=== PATIENT | male | born 1930 | race Caucasian/White ===

== ENCOUNTER 2016-08-25 12:22 | Observation (INO) | payer MEDICARE, OTHER ==
[2016-08-22 12:11] LABS: BASOPHILS 0.3 %; BASOPHILS ABSOLUTE 0.02 10/3/uL (0.0-0.16); EOSINOPHILS 5.8 %; EOSINOPHILS ABSOLUTE 0.35 10/3/uL (0.0-0.53); HEMATOCRIT 43.2 % (40.0-51.0); HEMOGLOBIN 14.8 g/dL (13.6-17.8); IMMATURE GRANULOCYTES 0.3 %; IMMATURE GRANULOCYTES ABSOLUTE 0.02 10/3/uL (0.0-0.11); LYMPHOCYTES ABSOLUTE 1.44 10/3/uL (0.67-4.30); MANUAL DIFF NO %; MEAN CORPUS HGB CONC 34.3 g/dL (32.0-36.0); MEAN CORPUSCULAR HEMOGLOB 33.1 pg (26.0-34.0); MEAN CORPUSCULAR VOLUME 96.6 fL (80-100); MEAN PLATELET VOLUME 9.9 fL (9.2-13.0); MONOCYTES ABSOLUTE 0.48 10/3/uL (0.21-1.20); NEUTROPHILS 61.6 %; PLATELET COUNT 174 10/3/uL (150-400); RBC DISTRIBUTION WIDTH 13.3 % (12.0-16.0); RED CELL COUNT 4.47 10/6/uL (4.7-6.1)
[2016-08-22 12:28] LABS: BUN (BLOOD UREA NITROGEN) 31 MG/DL (6-23); CALCIUM, SERUM 9.1 MG/DL (8.5-10.4); CHLORIDE, SERUM 105 MMOL/L (96-112); CO2 (CARBON DIOXIDE) 27 MMOL/L (24-34); CREATININE 1.28 MG/DL (0.70-1.30); GFR AFRICAN AMERICAN 59 ML/MIN (>=60); GFR NON AFRICAN AMERICAN 51 ML/MIN (>=60); GLUCOSE, SERUM 87 MG/DL (60-99); POTASSIUM, SERUM 4.7 MMOL/L (3.5-5.3); SODIUM, SERUM 142 MMOL/L (135-148)
--- NOTE | ~2016-08-25 | HP ---
History And Physical [address] [facility] 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 NECK: Supple. LUNGS: Clear. HEART: He has a regular rate and rhythm without murmur or gallop. ABDOMEN: Soft and nontender. Bowel sounds present and active. Liver and spleen are not enlarged. GENITOURINARY: External genitalia are normal. RECTAL: Exam reveals a 1+ smooth prostate. EXTREMITIES: Without edema. NEUROLOGIC: No abnormalities. MUSCULOSKELETAL: No abnormalities. IMPRESSION: Impression is that of bladder cancer with urethral stricture. PLAN: The plan is to do a cysto dilatation and bladder biopsies. OB/MODL Joe Moyer III, M.D. / [id number] CC: Reza Sharma III, M.D.
--- NOTE | ~2016-08-25 | OP ---
Record Of Operation [facility] [address] [place]. [address] NAME: MARGUERITE ALEX : 30 STATUS : REG [facility] PAT#: [id number] AGE: 85 ADM/REG DATE : 08/25/16 MR#: [id number] REPORT SERV DATE: 08/25/16 DICTATED BY: JOE MOYER III DATE: 08/25/16 REPORT STATUS : Draft TRANSCRIBED BY: MODL DATE: 08/25/16 DATE OF PROCEDURE: 08/25/2016 PROCEDURE: Cystoscopy, dilatation of urethral stricture, bilateral retrogrades, multiple bladder biopsies and resection of multiple small tumors and fulguration. 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 ANESTHESIA: General. DESCRIPTION OF PROCEDURE: Following induction of adequate general anesthesia, the patient was placed in the dorsal lithotomy position, prepped and draped in a sterile fashion. The urethra was entered and the bulbous urethra was approached. I could not see a clear path to the prostatic apex. A rigid ureteroscope was used and the track was identified. A wire was placed and confirmed with fluoro. The scope was passed into the bladder fairly easily. I then backed the ureteroscope out and used Guerrier sounds to dilate up to approximately 28- Djiboutian. The 22-Djiboutian sheath was passed through the prostate which was minimally obstructing. The base of the bladder either the trigone and somewhat the posterior wall and lateral lala up to about the midway from the posterior to the anterior surface of the bladder were reddened at the bladder near the bladder, particularly on the right side where his previous tumors were. There were some very small papillary clusters of tumor. There was also tumor at approximately 9 to 10 o'clock just inside the bladder neck on the right side. No solid tumor was noted. His bladder capacity was quite low and required constant emptying. Bilateral retrogrades were done and orifices were identified. There were no filling defects or gross distortion of the calices. Next cold cup forceps were taken from the base of the bladder and the mucosa peeled off very easily, suggestive of carcinoma in situ. Some cold cup biopsies were done and then after another passage with a Guerrier sound, a 24-sheath was advanced into the bladder. Some deeper shavings were done of the trigone and the base of the bladder down into the muscle. These were all sent as bladder biopsies. This included the previously mentioned small papillary lesions. Next the rollerball was placed and the tumor on the 9 to 10 o'clock position which I had actually attempted to remove with the loop but could not due to the fixation of the prostate, it was fulgurated with a rollerball electrode. All erythematous areas were fulgurated taking care not to fulgurate the ureteral orifice. This encompassed the compass basically the posterior half of the bladder. Hemostasis was achieved and a 22-Djiboutian three-way catheter was placed over a wire. The catheter was then placed on the irrigation and the procedure terminated. The patient tolerated the procedure well. The catheter was placed and the position confirmed by fluoro. We then attached the catheter to an open syringe and I checked the patient's bladder capacity which was right at 90 to 100 mL. This was pretty much what was expected. He tolerated the procedure well. Blood loss was 25 to 30 mL. Record Of Operation [address] [address] NAME: MARGUERITE ALEX : 30 STATUS : REG [facility] PAT#: [id number] AGE: 85 ADM/REG DATE : 08/25/16 MR#: [id number] REPORT SERV DATE: 08/25/16 DICTATED BY: JOE MOYER III DATE: 08/25/16 REPORT STATUS : Draft TRANSCRIBED BY: TAN DATE: 08/25/16 OB/TAN Joe Moyer III, M.D. / [id number] CC: Reza Sharma III, M.D.
[~2016-08-25 12:22] MED LIST: 8 HOUR650 MG PO; ACET500CAP PO; ACULARLS OPH; AMIT10 PO; CEFT2 PO; CIP2 PO; CIP5 PO; COUMADIN6 MG PO; DIL2TAB PO; DSS PO; ELIQUIS 2.5 MG2.5 MG PO; ELIQUIS 5 MG TAB5 MG PO; FLEX PO; FLOMAX4 PO; HYDROCODONE PO; HYT5 PO; IMDUR60 PO; IVVIBRA; JANTOVEN1 MG PO; JANTOVEN5 MG PO; JANTOVEN7.5 MG PO; KLOR-CON M2020 MEQ PO; L40 PO; LEVAQ750PM IV; LEVOTHYROXIN50 MCG PO; LOP100 PO; LOP25 PO; LOP50 PO; LORTAB10 PO; LOVENOX; LOVENOX60 SC; METHOC500B PO; MIRALAXPKT PO; MONODOX100 MG PO; MULTI-VIT HP PO; MULTIPLE VIT PO; NATURA2 OPH; NEUR300 PO; NITROSTAT0.4 MG SL; NORCO1 TAB PO; NORV25 PO; NORV5 PO; PERCOCET1 TA4 PO; PRILO PO; PRILOSEC40 MG PO; ROCEPH IM; SEROQUEL50 MG PO; T PO; TRAMADOL PO; ULTRACET PO; ULTRAM50 PO; VERAMYST27.5 MCG NAS; VOLTAREN1 % TOP; ZOCOR20 PO; ZYRTEC ALLGY10 MG PO; [UNRECOGNIZED DRUG - REMARK]
[2016-09-02] MEDS ORDERED: DIL2TAB PO (08:56)
[2016-09-02] MEDS ORDERED: LEVOTHYROXIN50 MCG PO (08:56)
[2016-09-02] MEDS ORDERED: LOP25 PO (08:56)
[2016-09-02] MEDS ORDERED: ZYRTEC ALLGY10 MG PO (08:56)
[2016-09-02] MEDS ORDERED: [UNRECOGNIZED DRUG - OTHER] PO (08:57)
[2016-09-02] MEDS ORDERED: ELIQUIS 5 MG TAB5 MG PO (08:57)
[2016-09-02] MEDS ORDERED: PRILOSEC40 MG PO (08:57)
[2016-09-02] MEDS ORDERED: CHLORASEPTIC1.4 % PO (08:58)
[2016-09-02] MEDS ORDERED: BLINK TEARS OPH (08:58)
[2016-09-02] MEDS ORDERED: TYLENOL PO ×2 (08:59)
[2016-09-02] MEDS ORDERED: MYCOLOG II CREA15 GM TOP (09:00)
[2016-09-02] MEDS ORDERED: ULTRAM50 PO (09:01)
[2016-12-20] MEDS ORDERED: ANASPAZ0.125 MG SL (10:00)
[2016-12-20] MEDS ORDERED: ZOFRAN4 PO (10:01)
[2017-02-14] MEDS ORDERED: STOOL SOFTENER PO (23:45)
[2017-02-14] MEDS ORDERED: ELIQUIS 5 MG TAB5 MG PO (23:46)
[2017-02-14] MEDS ORDERED: ZYRTEC ALLGY10 MG PO (23:46)
[2017-02-14] MEDS ORDERED: BENTYL10 PO (23:46)
[2017-02-14] MEDS ORDERED: NEUR300 PO (23:46)
[2017-02-14] MEDS ORDERED: ZOFRAN4 PO (23:47)
[2017-02-14] MEDS ORDERED: LEVOTHYROXIN50 MCG PO (23:47)
[2017-02-14] MEDS ORDERED: LOP25 PO (23:47)
[2017-02-14] MEDS ORDERED: MYCOSCROI TOP (23:47)
[2017-02-14] MEDS ORDERED: VOLTAREN1 % TOP (23:48)
[2017-02-14] MEDS ORDERED: BLINK TEARS OPH (23:48)
[2017-02-14] MEDS ORDERED: BCG (23:50)
[2017-02-14] MEDS ORDERED: DITRO5 PO (23:50)
[2017-02-14] MEDS ORDERED: PRILOSEC40 MG PO (23:50)
[2017-02-14] MEDS ORDERED: MIRALAX POWDER1 PKT PO (23:51)
[2017-02-14] MEDS ORDERED: PYR200 PO (23:51)
[2017-02-14] MEDS ORDERED: CARASPUDL PO (23:52)
[2017-02-14] MEDS ORDERED: ULTRAM50 PO (23:52)
[2017-02-14] MEDS ORDERED: FLOMAX4 PO (23:52)
[2017-02-14] MEDS ORDERED: OTC NASAL SPRAY NAS (23:54)
[2017-02-19] MEDS ORDERED: DURICEF PO (14:37)
[2017-02-19] MEDS ORDERED: PROSCAR5 PO (14:40)
[2017-04-24] MEDS ORDERED: CARASPUDL PO (20:43)
[2017-04-24] MEDS ORDERED: SYN.05 PO (20:44)
[2017-04-24] MEDS ORDERED: ACET500CAP PO (20:44)
[2017-04-24] MEDS ORDERED: FLOMAX4 PO (20:44)
[2017-04-24] MEDS ORDERED: LOP25 PO (20:44)
[2017-04-24] MEDS ORDERED: MYCOSCROI TOP (20:45)
[2017-04-24] MEDS ORDERED: PRILOSEC40 MG PO (20:46)
[2017-04-24] MEDS ORDERED: VOLTAREN1 % TOP (20:46)
[2017-04-24] MEDS ORDERED: LEVSINTAB PO (20:47)
[2017-04-24] MEDS ORDERED: ZYRTEC ALLGY10 MG PO (20:47)
[2017-04-24] MEDS ORDERED: PYR200 PO (20:48)
[2017-04-24] MEDS ORDERED: BENTYL10 PO (20:49)
[2017-04-24] MEDS ORDERED: ACULARLS OPH (20:49)
[2017-04-24] MEDS ORDERED: ZOFRAN4 PO (20:49)
[2017-04-24] MEDS ORDERED: DITRO5 PO (20:49)
[2017-04-24] MEDS ORDERED: ELIQUIS 5 MG TAB5 MG PO (20:50)
[2017-04-24] MEDS ORDERED: NEUR300 PO (20:51)
[2017-04-24] MEDS ORDERED: ULTRAM50 PO (20:52)
[2017-04-24] MEDS ORDERED: PROSCAR5 PO (20:53)
[2017-05-03] MEDS ORDERED: CORDARONE PO (10:23)
[2017-05-03] MEDS ORDERED: CEFT5 PO (10:25)
[2017-05-03] MEDS ORDERED: CIPOTIC OT (10:26)
[2017-05-03] MEDS ORDERED: LOP50 PO (10:29)
[2017-05-03] MEDS ORDERED: PYR200 PO (10:32)
== END 2016-08-26 13:25 | disposition home or self-care (01) ==
LOC: SDC 12:22 → 4EA 20:11
PROVIDERS: Urology
PROC: 0TBB8ZZ Excision of Bladder, Via Natural or Artificial Opening Endoscopic (ICD-10-PCS; 2016-08-25)
PROC: BT14ZZZ Fluoroscopy of Kidneys, Ureters and Bladder (ICD-10-PCS; principal; 2016-08-25 14:30)
PROC: 0T7D8DZ Dilation of Urethra with Intraluminal Device, Via Natural or Artificial Opening Endoscopic (ICD-10-PCS; 2016-08-25 14:30)
DX: D09.0 Carcinoma in situ of bladder (principal); N30.90 Cystitis, unspecified without hematuria; N35.9 Urethral stricture, unspecified; I25.2 Old myocardial infarction; E03.9 Hypothyroidism, unspecified; I10 Essential (primary) hypertension; Z88.6 Allergy status to analgesic agent; Z86.73 Personal history of transient ischemic attack (TIA), and cerebral infarction without residual deficits; Z88.5 Allergy status to narcotic agent; Z79.01 Long term (current) use of anticoagulants; Z79.899 Other long term (current) drug therapy
CPT/HCPCS: 71020; 74420; 80048; 85025; 88305; 93005; A9270-GY; G0378; J0360; J1170; J2270; J2370; J2405; J2710; J3010; Q9967

== ENCOUNTER 2016-10-22 18:45 | Emergency (ER) | payer MEDICARE, OTHER ==
[2016-10-22 18:18] LABS: BASOPHILS 0.2 %; BASOPHILS ABSOLUTE 0.01 10/3/uL (0.0-0.16); EOSINOPHILS 3.7 %; EOSINOPHILS ABSOLUTE 0.18 10/3/uL (0.0-0.53); ER CBC TAT 0 Hrs 08 Mins; HEMOGLOBIN 12.5 g/dL (13.6-17.8); IMMATURE GRANULOCYTES 0.2 %; IMMATURE GRANULOCYTES ABSOLUTE 0.01 10/3/uL (0.0-0.11); LYMPHOCYTES 16.5 %; LYMPHOCYTES ABSOLUTE 0.81 10/3/uL (0.67-4.30); MEAN CORPUS HGB CONC 34.5 g/dL (32.0-36.0); MEAN CORPUSCULAR HEMOGLOB 32.6 pg (26.0-34.0); MEAN CORPUSCULAR VOLUME 94.5 fL (80-100); MEAN PLATELET VOLUME 9.3 fL (9.2-13.0); MONOCYTES 6.3 %; MONOCYTES ABSOLUTE 0.31 10/3/uL (0.21-1.20); NEUTROPHILS 73.1 %; NEUTROPHILS ABSOLUTE 3.58 10/3/uL (2.02-8.40); PLATELET COUNT 170 10/3/uL (150-400); RBC DISTRIBUTION WIDTH 12.9 % (12.0-16.0); RED CELL COUNT 3.83 10/6/uL (4.7-6.1); WHITE BLOOD CELLS 4.9 10/3/uL (4.5-10.5)
[2016-10-22 18:19] LABS: HEMATOCRIT 36.2 % (40.0-51.0); MANUAL DIFF NO %
[2016-10-22 18:24] LABS: ASCORBIC ACID (UR NOT ORDER) NEG (NEG); BILIRUBIN, URINE NEGATIVE (NEG); ER URINALYSIS TAT 0 Hrs 18 Mins; KETONE, URINE NEGATIVE (NEG); LEUKOCYTE ESTERASE(NOT OR MOD (NEG); NITRITE (URINE) POS (NEG)
[2016-10-22 18:25] LABS: WBC (NOT ORDERED) (RFLEX) > 182 (0-5)
[2016-10-22 18:35] LABS: ALBUMIN 3.4 G/DL (3.5-5.0); ALKALINE PHOSPHATASE 66 U/L (45-117); BUN (BLOOD UREA NITROGEN) 23 MG/DL (6-23); CALCIUM, SERUM 8.7 MG/DL (8.5-10.4); CHLORIDE, SERUM 105 MMOL/L (96-112); CO2 (CARBON DIOXIDE) 28 MMOL/L (24-34); CREATININE 1.08 MG/DL (0.70-1.30); GFR AFRICAN AMERICAN 72 ML/MIN (>=60); GFR NON AFRICAN AMERICAN 62 ML/MIN (>=60); GLOBULIN 3.5 G/DL (2.5-4.1); GLUCOSE, SERUM 101 MG/DL (60-99); POTASSIUM, SERUM 3.8 MMOL/L (3.5-5.3); SGOT(AST) 12 U/L (5-40); SGPT(ALT) 13 U/L (5-65); SODIUM, SERUM 142 MMOL/L (135-148); TOTAL BILIRUBIN 0.5 MG/DL (0-1.2); TOTAL PROTEIN 6.9 G/DL (6.0-8.5)
[~2016-10-22 18:45] MED LIST changes: +BLINK TEARS OPH; +CHLORASEPTIC1.4 % PO; +MYCOLOG II CREA15 GM TOP; +TYLENOL PO; +[UNRECOGNIZED DRUG - OTHER] PO
[2016-12-20] MEDS ORDERED: ANASPAZ0.125 MG SL (10:00)
[2016-12-20] MEDS ORDERED: ZOFRAN4 PO (10:01)
[2017-02-14] MEDS ORDERED: STOOL SOFTENER PO (23:45)
[2017-02-14] MEDS ORDERED: ZYRTEC ALLGY10 MG PO (23:46)
[2017-02-14] MEDS ORDERED: BENTYL10 PO (23:46)
[2017-02-14] MEDS ORDERED: ELIQUIS 5 MG TAB5 MG PO (23:46)
[2017-02-14] MEDS ORDERED: NEUR300 PO (23:46)
[2017-02-14] MEDS ORDERED: LEVOTHYROXIN50 MCG PO (23:47)
[2017-02-14] MEDS ORDERED: ZOFRAN4 PO (23:47)
[2017-02-14] MEDS ORDERED: MYCOSCROI TOP (23:47)
[2017-02-14] MEDS ORDERED: LOP25 PO (23:47)
[2017-02-14] MEDS ORDERED: VOLTAREN1 % TOP (23:48)
[2017-02-14] MEDS ORDERED: BLINK TEARS OPH (23:48)
[2017-02-14] MEDS ORDERED: PRILOSEC40 MG PO (23:50)
[2017-02-14] MEDS ORDERED: DITRO5 PO (23:50)
[2017-02-14] MEDS ORDERED: BCG (23:50)
[2017-02-14] MEDS ORDERED: MIRALAX POWDER1 PKT PO (23:51)
[2017-02-14] MEDS ORDERED: PYR200 PO (23:51)
[2017-02-14] MEDS ORDERED: FLOMAX4 PO (23:52)
[2017-02-14] MEDS ORDERED: CARASPUDL PO (23:52)
[2017-02-14] MEDS ORDERED: ULTRAM50 PO (23:52)
[2017-02-14] MEDS ORDERED: OTC NASAL SPRAY NAS (23:54)
[2017-02-19] MEDS ORDERED: DURICEF PO (14:37)
[2017-02-19] MEDS ORDERED: PROSCAR5 PO (14:40)
[2017-04-24] MEDS ORDERED: CARASPUDL PO (20:43)
[2017-04-24] MEDS ORDERED: ACET500CAP PO (20:44)
[2017-04-24] MEDS ORDERED: LOP25 PO (20:44)
[2017-04-24] MEDS ORDERED: FLOMAX4 PO (20:44)
[2017-04-24] MEDS ORDERED: SYN.05 PO (20:44)
[2017-04-24] MEDS ORDERED: MYCOSCROI TOP (20:45)
[2017-04-24] MEDS ORDERED: VOLTAREN1 % TOP (20:46)
[2017-04-24] MEDS ORDERED: PRILOSEC40 MG PO (20:46)
[2017-04-24] MEDS ORDERED: ZYRTEC ALLGY10 MG PO (20:47)
[2017-04-24] MEDS ORDERED: LEVSINTAB PO (20:47)
[2017-04-24] MEDS ORDERED: PYR200 PO (20:48)
[2017-04-24] MEDS ORDERED: BENTYL10 PO (20:49)
[2017-04-24] MEDS ORDERED: DITRO5 PO (20:49)
[2017-04-24] MEDS ORDERED: ACULARLS OPH (20:49)
[2017-04-24] MEDS ORDERED: ZOFRAN4 PO (20:49)
[2017-04-24] MEDS ORDERED: ELIQUIS 5 MG TAB5 MG PO (20:50)
[2017-04-24] MEDS ORDERED: NEUR300 PO (20:51)
[2017-04-24] MEDS ORDERED: ULTRAM50 PO (20:52)
[2017-04-24] MEDS ORDERED: PROSCAR5 PO (20:53)
[2017-05-03] MEDS ORDERED: CORDARONE PO (10:23)
[2017-05-03] MEDS ORDERED: CEFT5 PO (10:25)
[2017-05-03] MEDS ORDERED: CIPOTIC OT (10:26)
[2017-05-03] MEDS ORDERED: LOP50 PO (10:29)
[2017-05-03] MEDS ORDERED: PYR200 PO (10:32)
== END 2016-10-22 21:14 | disposition home or self-care (01) ==
LOC: ER 18:45
PROVIDERS: Emergency Medicine
PROC: 0T9B70Z Drainage of Bladder with Drainage Device, Via Natural or Artificial Opening (ICD-10-PCS; principal; 2016-10-22)
DX: R33.9 Retention of urine, unspecified (principal); N39.0 Urinary tract infection, site not specified; I25.2 Old myocardial infarction; I48.91 Unspecified atrial fibrillation; N18.9 Chronic kidney disease, unspecified; I73.9 Peripheral vascular disease, unspecified; Z85.51 Personal history of malignant neoplasm of bladder; Z88.5 Allergy status to narcotic agent; Z88.6 Allergy status to analgesic agent; Z79.899 Other long term (current) drug therapy
CPT/HCPCS: 80053; 81001; 85025; 87077; 87086; 87186; 96372; 99284; A9270-GY

== ENCOUNTER 2016-10-24 22:27 | Emergency (ER) | payer MEDICARE, OTHER ==
[2016-10-24 23:41] LABS: BASOPHILS 0.4 %; BASOPHILS ABSOLUTE 0.02 10/3/uL (0.0-0.16); EOSINOPHILS 3.1 %; EOSINOPHILS ABSOLUTE 0.16 10/3/uL (0.0-0.53); ER CBC TAT 0 Hrs 06 MinsNP; HEMATOCRIT 39.2 % (40.0-51.0); HEMOGLOBIN 13.3 g/dL (13.6-17.8); IMMATURE GRANULOCYTES 0.8 %; IMMATURE GRANULOCYTES ABSOLUTE 0.04 10/3/uL (0.0-0.11); LYMPHOCYTES 20.8 %; LYMPHOCYTES ABSOLUTE 1.06 10/3/uL (0.67-4.30); MANUAL DIFF NO %; MEAN CORPUS HGB CONC 33.9 g/dL (32.0-36.0); MEAN CORPUSCULAR VOLUME 94.5 fL (80-100); MEAN PLATELET VOLUME 9.2 fL (9.2-13.0); MONOCYTES 7.3 %; MONOCYTES ABSOLUTE 0.37 10/3/uL (0.21-1.20); NEUTROPHILS 67.6 %; NEUTROPHILS ABSOLUTE 3.44 10/3/uL (2.02-8.40); PLATELET COUNT 202 10/3/uL (150-400); RBC DISTRIBUTION WIDTH 12.8 % (12.0-16.0); RED CELL COUNT 4.15 10/6/uL (4.7-6.1); WHITE BLOOD CELLS 5.1 10/3/uL (4.5-10.5)
[2016-10-24 23:47] LABS: INTERNATIONAL NORMAL RATI 1.4 UNITS (-)
[2016-10-24 23:49] LABS: PROTIME (NOT ORD) 17.3 SEC (12.0-14.5)
[2016-10-24 23:52] LABS: BUN (BLOOD UREA NITROGEN) 19 MG/DL (6-23); CALCIUM, SERUM 9.2 MG/DL (8.5-10.4); CHLORIDE, SERUM 101 MMOL/L (96-112); CO2 (CARBON DIOXIDE) 26 MMOL/L (24-34); CREATININE 1.42 MG/DL (0.70-1.30); GFR AFRICAN AMERICAN 51 ML/MIN (>=60); GFR NON AFRICAN AMERICAN 44 ML/MIN (>=60); GLUCOSE, SERUM 116 MG/DL (60-99); POTASSIUM, SERUM 3.8 MMOL/L (3.5-5.3); SODIUM, SERUM 140 MMOL/L (135-148)
[2016-12-20] MEDS ORDERED: ANASPAZ0.125 MG SL (10:00)
[2016-12-20] MEDS ORDERED: ZOFRAN4 PO (10:01)
[2017-02-14] MEDS ORDERED: STOOL SOFTENER PO (23:45)
[2017-02-14] MEDS ORDERED: ZYRTEC ALLGY10 MG PO (23:46)
[2017-02-14] MEDS ORDERED: ELIQUIS 5 MG TAB5 MG PO (23:46)
[2017-02-14] MEDS ORDERED: BENTYL10 PO (23:46)
[2017-02-14] MEDS ORDERED: NEUR300 PO (23:46)
[2017-02-14] MEDS ORDERED: LEVOTHYROXIN50 MCG PO (23:47)
[2017-02-14] MEDS ORDERED: LOP25 PO (23:47)
[2017-02-14] MEDS ORDERED: ZOFRAN4 PO (23:47)
[2017-02-14] MEDS ORDERED: MYCOSCROI TOP (23:47)
[2017-02-14] MEDS ORDERED: BLINK TEARS OPH (23:48)
[2017-02-14] MEDS ORDERED: VOLTAREN1 % TOP (23:48)
[2017-02-14] MEDS ORDERED: PRILOSEC40 MG PO (23:50)
[2017-02-14] MEDS ORDERED: BCG (23:50)
[2017-02-14] MEDS ORDERED: DITRO5 PO (23:50)
[2017-02-14] MEDS ORDERED: PYR200 PO (23:51)
[2017-02-14] MEDS ORDERED: MIRALAX POWDER1 PKT PO (23:51)
[2017-02-14] MEDS ORDERED: ULTRAM50 PO (23:52)
[2017-02-14] MEDS ORDERED: FLOMAX4 PO (23:52)
[2017-02-14] MEDS ORDERED: CARASPUDL PO (23:52)
[2017-02-14] MEDS ORDERED: OTC NASAL SPRAY NAS (23:54)
[2017-02-19] MEDS ORDERED: DURICEF PO (14:37)
[2017-02-19] MEDS ORDERED: PROSCAR5 PO (14:40)
[2017-04-24] MEDS ORDERED: CARASPUDL PO (20:43)
[2017-04-24] MEDS ORDERED: ACET500CAP PO (20:44)
[2017-04-24] MEDS ORDERED: SYN.05 PO (20:44)
[2017-04-24] MEDS ORDERED: LOP25 PO (20:44)
[2017-04-24] MEDS ORDERED: FLOMAX4 PO (20:44)
[2017-04-24] MEDS ORDERED: MYCOSCROI TOP (20:45)
[2017-04-24] MEDS ORDERED: PRILOSEC40 MG PO (20:46)
[2017-04-24] MEDS ORDERED: VOLTAREN1 % TOP (20:46)
[2017-04-24] MEDS ORDERED: LEVSINTAB PO (20:47)
[2017-04-24] MEDS ORDERED: ZYRTEC ALLGY10 MG PO (20:47)
[2017-04-24] MEDS ORDERED: PYR200 PO (20:48)
[2017-04-24] MEDS ORDERED: ZOFRAN4 PO (20:49)
[2017-04-24] MEDS ORDERED: ACULARLS OPH (20:49)
[2017-04-24] MEDS ORDERED: BENTYL10 PO (20:49)
[2017-04-24] MEDS ORDERED: DITRO5 PO (20:49)
[2017-04-24] MEDS ORDERED: ELIQUIS 5 MG TAB5 MG PO (20:50)
[2017-04-24] MEDS ORDERED: NEUR300 PO (20:51)
[2017-04-24] MEDS ORDERED: ULTRAM50 PO (20:52)
[2017-04-24] MEDS ORDERED: PROSCAR5 PO (20:53)
[2017-05-03] MEDS ORDERED: CORDARONE PO (10:23)
[2017-05-03] MEDS ORDERED: CEFT5 PO (10:25)
[2017-05-03] MEDS ORDERED: CIPOTIC OT (10:26)
[2017-05-03] MEDS ORDERED: LOP50 PO (10:29)
[2017-05-03] MEDS ORDERED: PYR200 PO (10:32)
== END 2016-10-25 03:34 | disposition home or self-care (01) ==
LOC: ER 22:27
PROVIDERS: Nurse Practitioner Acute Care
DX: M54.16 Radiculopathy, lumbar region (principal); I12.9 Hypertensive chronic kidney disease with stage 1 through stage 4 chronic kidney disease, or unspecified chronic kidney disease; N18.9 Chronic kidney disease, unspecified; K21.9 Gastro-esophageal reflux disease without esophagitis; Z95.5 Presence of coronary angioplasty implant and graft; I48.91 Unspecified atrial fibrillation; Z85.46 Personal history of malignant neoplasm of prostate; Z85.51 Personal history of malignant neoplasm of bladder; Z87.891 Personal history of nicotine dependence; Z88.5 Allergy status to narcotic agent; Z88.6 Allergy status to analgesic agent; Z79.899 Other long term (current) drug therapy
CPT/HCPCS: 70450; 72192; 80048; 85025; 85610; 85730; 96374; 96375; 99284; J1170; J2405

== ENCOUNTER 2016-11-05 23:28 | Emergency (ER) | payer MEDICARE, OTHER ==
[2016-11-05 19:32] LABS: BASOPHILS 0.3 %; BASOPHILS ABSOLUTE 0.02 10/3/uL (0.0-0.16); EOSINOPHILS 3.4 %; EOSINOPHILS ABSOLUTE 0.21 10/3/uL (0.0-0.53); HEMATOCRIT 36.8 % (40.0-51.0); HEMOGLOBIN 12.6 g/dL (13.6-17.8); IMMATURE GRANULOCYTES 0.3 %; IMMATURE GRANULOCYTES ABSOLUTE 0.02 10/3/uL (0.0-0.11); LYMPHOCYTES 14.4 %; LYMPHOCYTES ABSOLUTE 0.89 10/3/uL (0.67-4.30); MEAN CORPUS HGB CONC 34.2 g/dL (32.0-36.0); MEAN CORPUSCULAR VOLUME 96.3 fL (80-100); MEAN PLATELET VOLUME 9.4 fL (9.2-13.0); MONOCYTES 6.2 %; MONOCYTES ABSOLUTE 0.38 10/3/uL (0.21-1.20); NEUTROPHILS 75.4 %; NEUTROPHILS ABSOLUTE 4.64 10/3/uL (2.02-8.40); PLATELET COUNT 189 10/3/uL (150-400); RBC DISTRIBUTION WIDTH 13.3 % (12.0-16.0); RED CELL COUNT 3.82 10/6/uL (4.7-6.1); WHITE BLOOD CELLS 6.2 10/3/uL (4.5-10.5)
[2016-11-05 19:33] LABS: MANUAL DIFF NO %
[2016-11-05 19:50] LABS: A/G RATIO 0.8 (0.7-1.9); ALBUMIN 3.3 G/DL (3.5-5.0); BUN (BLOOD UREA NITROGEN) 16 MG/DL (6-23); CALCIUM, SERUM 8.8 MG/DL (8.5-10.4); CHLORIDE, SERUM 105 MMOL/L (96-112); CO2 (CARBON DIOXIDE) 28 MMOL/L (24-34); CREATININE 1.16 MG/DL (0.70-1.30); GFR AFRICAN AMERICAN 66 ML/MIN (>=60); GFR NON AFRICAN AMERICAN 57 ML/MIN (>=60); GLOBULIN 3.9 G/DL (2.5-4.1); GLUCOSE, SERUM 100 MG/DL (60-99); POTASSIUM, SERUM 4.1 MMOL/L (3.5-5.3); SGOT(AST) 44 U/L (5-40); SGPT(ALT) 41 U/L (5-65); SODIUM, SERUM 141 MMOL/L (135-148); TOTAL BILIRUBIN 0.5 MG/DL (0-1.2); TOTAL PROTEIN 7.2 G/DL (6.0-8.5)
[2016-11-05 19:57] LABS: ALKALINE PHOSPHATASE 167 U/L (45-117)
[2016-11-05 20:08] LABS: ASCORBIC ACID (UR NOT ORDER) NEG (NEG); BILIRUBIN, URINE NEGATIVE (NEG); ER URINALYSIS TAT 0 Hrs 20 Mins; KETONE, URINE NEGATIVE (NEG); LEUKOCYTE ESTERASE(NOT OR SMALL (NEG); NITRITE (URINE) POS (NEG); WBC (NOT ORDERED) (RFLEX) > 182 (0-5)
[2016-11-07] MEDS ORDERED: CARASPUDL PO (05:39)
[2016-11-07] MEDS ORDERED: PYR200 PO (05:39)
[2016-11-07] MEDS ORDERED: FLOMAX4 PO (05:40)
[2016-11-07] MEDS ORDERED: BENTYL10 PO (05:40)
[2016-11-07] MEDS ORDERED: LEVSINTAB PO (05:41)
[2016-11-07] MEDS ORDERED: DITRO5 PO (05:42)
[2016-11-07] MEDS ORDERED: ULTRAM50 PO (05:51)
[2016-11-07] MEDS ORDERED: NEUR300 PO (06:04)
[2016-11-07] MEDS ORDERED: [UNRECOGNIZED DRUG - OTHER] (06:06)
[2016-12-20] MEDS ORDERED: ANASPAZ0.125 MG SL (10:00)
[2016-12-20] MEDS ORDERED: ZOFRAN4 PO (10:01)
[2017-02-14] MEDS ORDERED: STOOL SOFTENER PO (23:45)
[2017-02-14] MEDS ORDERED: ELIQUIS 5 MG TAB5 MG PO (23:46)
[2017-02-14] MEDS ORDERED: BENTYL10 PO (23:46)
[2017-02-14] MEDS ORDERED: ZYRTEC ALLGY10 MG PO (23:46)
[2017-02-14] MEDS ORDERED: NEUR300 PO (23:46)
[2017-02-14] MEDS ORDERED: LEVOTHYROXIN50 MCG PO (23:47)
[2017-02-14] MEDS ORDERED: LOP25 PO (23:47)
[2017-02-14] MEDS ORDERED: MYCOSCROI TOP (23:47)
[2017-02-14] MEDS ORDERED: ZOFRAN4 PO (23:47)
[2017-02-14] MEDS ORDERED: BLINK TEARS OPH (23:48)
[2017-02-14] MEDS ORDERED: VOLTAREN1 % TOP (23:48)
[2017-02-14] MEDS ORDERED: PRILOSEC40 MG PO (23:50)
[2017-02-14] MEDS ORDERED: BCG (23:50)
[2017-02-14] MEDS ORDERED: DITRO5 PO (23:50)
[2017-02-14] MEDS ORDERED: PYR200 PO (23:51)
[2017-02-14] MEDS ORDERED: MIRALAX POWDER1 PKT PO (23:51)
[2017-02-14] MEDS ORDERED: ULTRAM50 PO (23:52)
[2017-02-14] MEDS ORDERED: CARASPUDL PO (23:52)
[2017-02-14] MEDS ORDERED: FLOMAX4 PO (23:52)
[2017-02-14] MEDS ORDERED: OTC NASAL SPRAY NAS (23:54)
[2017-02-19] MEDS ORDERED: DURICEF PO (14:37)
[2017-02-19] MEDS ORDERED: PROSCAR5 PO (14:40)
[2017-04-24] MEDS ORDERED: CARASPUDL PO (20:43)
[2017-04-24] MEDS ORDERED: ACET500CAP PO (20:44)
[2017-04-24] MEDS ORDERED: FLOMAX4 PO (20:44)
[2017-04-24] MEDS ORDERED: LOP25 PO (20:44)
[2017-04-24] MEDS ORDERED: SYN.05 PO (20:44)
[2017-04-24] MEDS ORDERED: MYCOSCROI TOP (20:45)
[2017-04-24] MEDS ORDERED: PRILOSEC40 MG PO (20:46)
[2017-04-24] MEDS ORDERED: VOLTAREN1 % TOP (20:46)
[2017-04-24] MEDS ORDERED: LEVSINTAB PO (20:47)
[2017-04-24] MEDS ORDERED: ZYRTEC ALLGY10 MG PO (20:47)
[2017-04-24] MEDS ORDERED: PYR200 PO (20:48)
[2017-04-24] MEDS ORDERED: ACULARLS OPH (20:49)
[2017-04-24] MEDS ORDERED: DITRO5 PO (20:49)
[2017-04-24] MEDS ORDERED: ZOFRAN4 PO (20:49)
[2017-04-24] MEDS ORDERED: BENTYL10 PO (20:49)
[2017-04-24] MEDS ORDERED: ELIQUIS 5 MG TAB5 MG PO (20:50)
[2017-04-24] MEDS ORDERED: NEUR300 PO (20:51)
[2017-04-24] MEDS ORDERED: ULTRAM50 PO (20:52)
[2017-04-24] MEDS ORDERED: PROSCAR5 PO (20:53)
[2017-05-03] MEDS ORDERED: CORDARONE PO (10:23)
[2017-05-03] MEDS ORDERED: CEFT5 PO (10:25)
[2017-05-03] MEDS ORDERED: CIPOTIC OT (10:26)
[2017-05-03] MEDS ORDERED: LOP50 PO (10:29)
[2017-05-03] MEDS ORDERED: PYR200 PO (10:32)
== END 2016-11-06 02:35 | disposition home or self-care (01) ==
LOC: ER 23:28
PROVIDERS: Emergency Medicine
DX: M25.552 Pain in left hip (principal); I10 Essential (primary) hypertension; I50.9 Heart failure, unspecified; Z95.5 Presence of coronary angioplasty implant and graft; Z87.01 Personal history of pneumonia (recurrent); Z86.73 Personal history of transient ischemic attack (TIA), and cerebral infarction without residual deficits; K21.9 Gastro-esophageal reflux disease without esophagitis; Z85.46 Personal history of malignant neoplasm of prostate; Z85.51 Personal history of malignant neoplasm of bladder; Z88.5 Allergy status to narcotic agent; Z88.6 Allergy status to analgesic agent; Z79.899 Other long term (current) drug therapy
CPT/HCPCS: 80053; 81001; 83690; 85025; 87077; 87086; 87186; 96374; 96376; 99283

== ENCOUNTER 2016-11-07 03:02 | Observation (INO) | payer MEDICARE, OTHER ==
--- NOTE | ~2016-11-07 | DS ---
Discharge Summary [address] [place]. [address] NAME: MARGUERITE ALEX : 30 STATUS : DIS Jeanmarie PAT#: [id number] AGE: 86 ADM/REG DATE : 11/07/16 MR#: [id number] REPORT SERV DATE: 11/10/16 DICTATED BY: JR. PORTILLO WILLIAM JOHN DATE: 11/09/16 REPORT STATUS : Draft TRANSCRIBED BY: MODJoss DATE: 11/09/16 ADMISSION DATE: 11/07/2016 DISCHARGE DATE: 11/09/2016 DISCHARGE DIAGNOSES: Include: 1. Bilateral buttock pain with radiculopathy down both legs. 2. Atrial fibrillation with rapid ventricular response. 3. Constipation. 4. Escherichia coli urinary tract infection. 5. History of bladder/prostate cancer. Followed by Dr. Unger. 6. Hypothyroidism. 7. Peripheral arterial disease. 8. Hypertension. OPERATIONS, PROCEDURES, AND TREATMENTS: Include: Chest x-ray done on 11/07/2016, which showed mild left basilar atelectasis with ectatic course of thoracic aorta with descending thoracic aortic stent graft. DISCHARGE MEDICATIONS: Include: 1. Ampicillin 500 mg orally four times a day for six days. 2. Percocet 10/325 one to two tabs every four hours as needed, dispensing 30. 3. Mag citrate one bottle daily p.r.n. for constipation. 4. Apixaban 5 mg orally twice a day. 5. Bentyl 10 mg orally three times a day. 6. Neurontin 300 mg orally three times a day. 7. Levsin 0.125 mg three times a day. 8. Synthroid 50 mcg orally daily. 9. Zyrtec 10 mg orally daily. 10.Metoprolol 25 mg orally twice a day. 11.Ditropan 5 mg orally three times a day. 12.Prilosec 40 mg orally daily. 13.MiraLAX one dose twice a day. 14.Phenazopyridine 95 mg orally three times a day as needed. 15.Sucralfate 1 g four times a day. 16.Flomax 0.4 mg daily. 17.Tramadol 50 t.i.d. 18.OxyContin 10 mg orally twice a day. HOSPITAL COURSE: The patient is an 86-year-old male, presented from [facility] after a fall. He had 3 such falls in the past week. He was found to have atrial fibrillation and rapid ventricular response and was transferred to [facility], however, converted to spontaneous sinus rhythm in transit. The patient was initially accepted by the Cardiology Service and was subsequently transferred to the Medicine Service as the patient's major complaint was actually back pain. The patient was subsequently seen by Dr. Scarlett Martinez's on 11/07/2016 with buttock pain radiating down the legs. The patient was then seen in consultation by Dr. Noyola of Orthopedic Surgery, who recommended pain Discharge Summary [address] [place]. [address] NAME: MARGUERITE ALEX : 30 STATUS : DIS Jeanmarie PAT#: [id number] AGE: 86 ADM/REG DATE : 11/07/16 MR#: [id number] REPORT SERV DATE: 11/10/16 DICTATED BY: JR. PORTILLO WILLIAM JOHN DATE: 11/09/16 REPORT STATUS : Draft TRANSCRIBED BY: TAN DATE: 11/09/16 control as the patient is not a good candidate for any intervention given his recent AFib with rapid response requiring apixaban as well as rate-controlling medications. The patient was started on OxyContin 10 mg orally twice a day with as needed Percocet. He will be set up for physical therapy either by home health or outpatient. Regarding atrial fibrillation with rapid ventricular response, he had spontaneous reversion to sinus rhythm with controlled rate. He was placed on Eliquis and metoprolol. There were no other issues in this regard. Regarding constipation, we discussed MiraLAX as well as magnesium citrate. Regarding his urinary tract infection, culture grew Escherichia coli that was sensitive to ampicillin. We will place the patient on ampicillin 500 mg four times a day for six additional days. The remainder of the patient's health problems remained stable and were not addressed. This discharge took 37 minutes for patient encounter, coordination and care, and documentation. DISCHARGE DIET: Cardiac diet. ACTIVITY: As tolerated. FOLLOWUP: With Dr. Julianna De Guzman within 1 week as well as follow up with Dr. Noyola and Dr. Unger. For discharge exam and laboratory, please see daily progress note. ZAID/TNA Farrukh Portillo Jr, MD / [id number] CC: Farrukh Portillo Jr, MD Cari Beth Page, M.D.
--- NOTE | ~2016-11-07 | HP ---
History And Physical [address] [address] NAME: MARGUERITE ALEX : 30 STATUS : ADM Jeanmarie PAT#: [id number] AGE: 86 ADM/REG DATE : 11/07/16 MR#: [id number] REPORT SERV DATE: 11/07/16 DICTATED BY: ROBERT MONTEZ DATE: 11/07/16 REPORT STATUS : Draft TRANSCRIBED BY: MODJoss DATE: 11/07/16 DATE OF ADMISSION: 11/07/2016 CHIEF COMPLAINT: Buttock pain radiating down the legs. HISTORY OF PRESENT ILLNESS: The patient is an unfortunate 86-year-old white male with a plethora of medical problems. He was admitted to the CVU to the Cardiology service for atrial fibrillation RVR which subsequently resolved. He is now in sinus rhythm. His main complaint is pain in his buttocks which radiates down his leg to the tips of his toes. He states he has had it for about three weeks. It is incapacitating. He has not lost any weight. He has not had any new bladder or bowel incontinence. He has not had any fevers. He has had several studies done. He was seen at [facility] and had a CT abdomen and pelvis as well as a CT of his thoracic and lumbar spine, none of which was really revealing. He had some DJD in his spine. He cannot have an MRI as he has some metal in his face. He has had previous issues with lumbar spine pain and actually saw Dr. Deshawn Noyola, had a facet injection. This was some time ago. He has had previous spine surgery. No other real complaints today other than some constipation and he has E. coli growing in his urine at one hundred thousand colonies. PAST MEDICAL HISTORY: Positive for 1. Recurrent urinary tract infections. 2. Previous chronic Bejarano, bladder cancer, prostate cancer. 3. Hypothyroidism. 4. Atrial fibrillation. 5. Hypertension. 6. Osteoarthritis. 7. PAD with endovascular thoracic aneurysm repair. 8. Left eye blindness. 9. GERD. SOCIAL HISTORY: He does not smoke or drink. He quit smoking at the age of 50. ALLERGIES: ASPIRIN AND CODEINE. PAST SURGICAL HISTORY: 1. He has had a left eye surgery. 2. Left inguinal hernia. 3. Prostate cancer, seed implantation. 4. Left rotator cuff. 5. Back surgery. 6. Clarence. 7. TURP. 8. Cataract surgery. 9. Gastric ulcer repair. 10.Thoracic aneurysm repair. 11.Cholecystectomy. History And Physical [address] [address] NAME: MARGUERITE ALEX : 30 STATUS : ADM Jeanmarie PAT#: [id number] AGE: 86 ADM/REG DATE : 11/07/16 MR#: [id number] REPORT SERV DATE: 11/07/16 DICTATED BY: ROBERT MONTEZ DATE: 11/07/16 REPORT STATUS : Draft TRANSCRIBED BY: TAN DATE: 11/07/16 12.Right total hip arthroplasty. 13.Cardiac ablation. FAMILY HISTORY: Positive for CAD and hypertension. ALLERGIES: ASPIRIN AND CODEINE. HOME MEDICATIONS: Reviewed. A 10-point review of systems obtained. Pertinent positives as mentioned in the HPI. PHYSICAL EXAMINATION: VITAL SIGNS: Blood pressure 154/91, respiratory rate 16, temperature 98.1, and pulse 75. GENERAL: Well-developed white male, in no apparent distress. HEENT: Normocephalic, atraumatic. Throat is clear. NECK: Supple. HEART: Regular rate and rhythm. LUNGS: Grossly clear. ABDOMEN: Soft, nontender, nondistended. EXTREMITIES: Warm and dry. Skin is intact. Pulses are 2+ at the feet. Strength and tone are symmetrical in all four extremities. LAB AND X-RAY STUDIES: These are from the 25th, H and H 12.6 and 36, white count 6, and platelets 189. Sodium 141, potassium 4, chloride 105, CO2 of 28, BUN and creatinine 6 and 1.16. Glucose 100. LFTs were normal other than alkaline phosphatase of 259, ALT of 74, AST is 78. ASSESSMENT/PLAN: 1. Atrial fibrillation with RVR. Resolved. 2. Bilateral buttock pain with radiation down the legs, consistent with possible sciatica. He has already had extensive imaging. CT of his abdomen and pelvis as well as CT of the spinal which was negative. He cannot have an MRI. I am going to place him on some Percocet for pain control. I am going to have Dr. Deshawn Noyola see him in consultation to see if we need to entertain some possible injection, we will see what he thinks. We will control his pain and go from there. 3. Constipation. We will start MiraLAX. 4. Urinary tract infection with E. coli. Start Rocephin. It pansensitive on the culture. 5. History of bladder and prostate cancer. 6. History of hypothyroidism. 7. History of peripheral arterial disease. 8. History of osteoarthritis. 9. History of hypertension, currently treated. 10.Deep venous thrombosis prophylaxis. He is on Eliquis for atrial fibrillation. 11.Disposition pending above aforementioned plan and workup. DONALD/TAN History And Physical [address] [place]. [address] NAME: MARGUERITE ALEX : 30 STATUS : ADM Jeanmarie PAT#: [id number] AGE: 86 ADM/REG DATE : 11/07/16 MR#: [id number] REPORT SERV DATE: 11/07/16 DICTATED BY: ROBERT MONTEZ DATE: 11/07/16 REPORT STATUS : Draft TRANSCRIBED BY: TAN DATE: 11/07/16 Robert Montez M.D. / [id number] CC: Farrukh Portillo Jr, MD Cari Beth Page, M.D.
--- NOTE | ~2016-11-07 | CN ---
Consultation Report [facility] [address] [place]. [address] NAME: MARGUERITE ALEX : 30 STATUS : ADM Jeanmarie PAT#: [id number] AGE: 86 ADM/REG DATE : 11/07/16 MR#: [id number] REPORT SERV DATE: 11/07/16 DICTATED BY: TY PAULINO DATE: 11/07/16 REPORT STATUS : Draft TRANSCRIBED BY: MODL DATE: 11/07/16 CARDIOLOGY CONSULTATION DATE OF CONSULTATION: 11/07/2016 REASON FOR CONSULTATION: Atrial fibrillation. HISTORY OF PRESENT ILLNESS: Mr. Alex is a pleasant 86-year-old gentleman, who presented to [facility] after a fall. He has had three such falls in the last few weeks. He claims that he just loses his balance and that his legs are somewhat weak. The patient was noted to have atrial fibrillation with rapid ventricular response. He was sent to [facility] for further evaluation. He has since converted back to sinus rhythm spontaneously. He is denying any congestive heart failure symptoms or palpitations. Hemodynamically, he has been stable. PAST MEDICAL HISTORY: Notable for: 1. Moderate aortic stenosis with a mean gradient of 23. 2. History of paroxysmal atrial fibrillation, on anticoagulation, specifically taking Eliquis 5 mg b.i.d. 3. History of atrial flutter, status post ablation. 4. History of thoracic aortic dissection, treated with stent placement by Dr. Buenrostro. 5. History of bladder cancer, the patient has been undergoing chemotherapy. 6. History of chronic stage 2 kidney disease. 7. History of coronary artery disease, mild, nonobstructive. 8. History of CVA. 9. History of prostate cancer. 10.History of hypertension. HOME MEDICATIONS: Include Eliquis, Neurontin, Levsin, levothyroxine, Lopressor 25 mg p.o. b.i.d., Prilosec, Ditropan, tramadol, Carafate, Flomax. FAMILY HISTORY: Noncontributory. Negative for premature coronary disease. SOCIAL HISTORY: Negative for tobacco or alcohol. REVIEW OF SYSTEMS: As noted above. All other systems reviewed and negative. PHYSICAL EXAMINATION: VITAL SIGNS: Blood pressure here has been between 140 and 150 systolic and 90 diastolic, mild sinus tachycardia, heart rate of 100 beats per minute, respirations 16. GENERAL: Well developed, well nourished. HEENT: No icterus. Good dentition. NECK: Supple. No masses or thyromegaly. Consultation Report [place] [place]. [address] NAME: MARGUERITE ALEX : 30 STATUS : ADM Jeanmarie PAT#: [id number] AGE: 86 ADM/REG DATE : 11/07/16 MR#: [id number] REPORT SERV DATE: 11/07/16 DICTATED BY: TY PAULINO DATE: 11/07/16 REPORT STATUS : Draft TRANSCRIBED BY: TAN DATE: 11/07/16 LUNGS: Breathing comfortably. No rales or wheezes. CARDIAC: He has a 2/6 systolic ejection murmur with a clear S2, best heard at the right upper sternal border. ABD: Soft, nondistended, nontender. No hepatosplenomegaly. EXT: No clubbing, cyanosis, or edema. Peripheral pulses 2+/= bilaterally. SKIN: Warm and dry. No visible lesions. MS: Chest wall without deformity. No obvious clavicular fractures. NEURO/PSYCH: Oriented x3. No anxiety or depression. DIAGNOSTIC STUDIES: EKG initially showed atrial fibrillation with rapid ventricular response, this has since shown normal sinus rhythm. Heart rate of 80 beats per minute. Normal [place], QRS, and QT intervals. Possible left atrial enlargement. Q-waves noted in leads III and aVF, consistent with prior inferior myocardial infarction of indeterminate age. No evidence for acute ischemia. LABORATORY VALUES: Electrolytes, BUN, creatinine, troponin all within normal limits. IMPRESSION: The patient was sent over here after a fall. There did not appear to be evidence for any fractures. There was no evidence of hip fracture. He did have an episode of atrial fibrillation. It did not appear that this influenced the fall, which seems to be due to balance-related issues. He has since converted back to normal sinus rhythm. He has a history of moderate aortic stenosis and by examination today, it still appears to be moderate. The S2 sound is clearly heard. He does not appear to have symptoms consistent with severe critical aortic stenosis. RECOMMENDATIONS: The patient will continue his apixaban for his atrial fibrillation and CVA prophylaxis. The patient did not hit his head. There does not appear to be an indication for surgical intervention of his fall at this point in time. The patient's history of aortic dissection in the thoracic region treated with prior stent also appears to be stable. We will continue to follow with the hospitalist service. CHAUNCEY/TAN Ty Paulino M.D. / [id number] CC: Farrukh Portillo Jr, MD Cari Beth Page, M.D.
[2016-11-07 04:33] LABS: INTERNATIONAL NORMAL RATI 1.1 UNITS (-); PARTIAL THROMBO TIME 33.4 SEC (22.5-37.2)
[2016-11-07 04:34] LABS: PROTIME (NOT ORD) 14.3 SEC (12.0-14.5)
[2016-11-07 04:53] LABS: ALBUMIN 3.4 G/DL (3.5-5.0); FREE T4 1.28 NG/DL (0.76-1.46); TOTAL BILIRUBIN 0.8 MG/DL (0-1.2); TOTAL PROTEIN 7.1 G/DL (6.0-8.5); TROPONIN I 0.03 NG/ML (<0.05)
[2016-11-07 04:55] LABS: DIRECT BILIRUBIN 0.4 MG/DL (0.0-0.4); INDIRECT BILIRUBIN(NOT ORDER) 0.4 MG/DL (0.1-0.9); ULTRASENSITIVE TSH 2.76 MCIU/ML (0.358-3.740)
[2016-11-07] MEDS ORDERED: PYR200 PO (05:39)
[2016-11-07] MEDS ORDERED: CARASPUDL PO (05:39)
[2016-11-07] MEDS ORDERED: BENTYL10 PO (05:40)
[2016-11-07] MEDS ORDERED: FLOMAX4 PO (05:40)
[2016-11-07] MEDS ORDERED: LEVSINTAB PO (05:41)
[2016-11-07] MEDS ORDERED: DITRO5 PO (05:42)
[2016-11-07] MEDS ORDERED: ULTRAM50 PO (05:51)
[2016-11-07] MEDS ORDERED: NEUR300 PO (06:04)
[2016-11-07] MEDS ORDERED: [UNRECOGNIZED DRUG - OTHER] (06:06)
[2016-11-08 06:05] LABS: BASOPHILS 0.2 %; BASOPHILS ABSOLUTE 0.01 10/3/uL (0.0-0.16); EOSINOPHILS ABSOLUTE 0.16 10/3/uL (0.0-0.53); HEMATOCRIT 38.8 % (40.0-51.0); HEMOGLOBIN 13.2 g/dL (13.6-17.8); IMMATURE GRANULOCYTES 0.2 %; IMMATURE GRANULOCYTES ABSOLUTE 0.01 10/3/uL (0.0-0.11); LYMPHOCYTES 16.3 %; LYMPHOCYTES ABSOLUTE 0.88 10/3/uL (0.67-4.30); MANUAL DIFF NO %; MEAN CORPUSCULAR HEMOGLOB 32.4 pg (26.0-34.0); MEAN CORPUSCULAR VOLUME 95.3 fL (80-100); MONOCYTES 9.1 %; MONOCYTES ABSOLUTE 0.49 10/3/uL (0.21-1.20); NEUTROPHILS 71.2 %; NEUTROPHILS ABSOLUTE 3.86 10/3/uL (2.02-8.40); PLATELET COUNT 184 10/3/uL (150-400); RBC DISTRIBUTION WIDTH 13.4 % (12.0-16.0); RED CELL COUNT 4.07 10/6/uL (4.7-6.1); WHITE BLOOD CELLS 5.4 10/3/uL (4.5-10.5)
[2016-11-08 06:21] LABS: CHLORIDE, SERUM 105 MMOL/L (96-112); CO2 (CARBON DIOXIDE) 24 MMOL/L (24-34); CREATININE 1.19 MG/DL (0.70-1.30); GFR AFRICAN AMERICAN 64 ML/MIN (>=60); GFR NON AFRICAN AMERICAN 55 ML/MIN (>=60); GLUCOSE, SERUM 104 MG/DL (60-99); POTASSIUM, SERUM 3.9 MMOL/L (3.5-5.3); SODIUM, SERUM 138 MMOL/L (135-148)
[2016-11-08 06:28] LABS: BUN (BLOOD UREA NITROGEN) 20 MG/DL (6-23)
[2016-11-09] MEDS ORDERED: AMPI500 PO (13:59)
[2016-11-09] MEDS ORDERED: PERCOCET 10/3251 TAB PO (14:00)
[2016-11-09] MEDS ORDERED: OXYCON10 PO (14:02)
[2016-11-09] MEDS ORDERED: MIRALAX POWDER1 PKT PO (14:12)
[2016-11-09] MEDS ORDERED: AZO-STANDARD95 MG PO (14:21)
[2016-12-20] MEDS ORDERED: ANASPAZ0.125 MG SL (10:00)
[2016-12-20] MEDS ORDERED: ZOFRAN4 PO (10:01)
[2017-02-14] MEDS ORDERED: STOOL SOFTENER PO (23:45)
[2017-02-14] MEDS ORDERED: NEUR300 PO (23:46)
[2017-02-14] MEDS ORDERED: ELIQUIS 5 MG TAB5 MG PO (23:46)
[2017-02-14] MEDS ORDERED: BENTYL10 PO (23:46)
[2017-02-14] MEDS ORDERED: ZYRTEC ALLGY10 MG PO (23:46)
[2017-02-14] MEDS ORDERED: LOP25 PO (23:47)
[2017-02-14] MEDS ORDERED: MYCOSCROI TOP (23:47)
[2017-02-14] MEDS ORDERED: ZOFRAN4 PO (23:47)
[2017-02-14] MEDS ORDERED: LEVOTHYROXIN50 MCG PO (23:47)
[2017-02-14] MEDS ORDERED: BLINK TEARS OPH (23:48)
[2017-02-14] MEDS ORDERED: VOLTAREN1 % TOP (23:48)
[2017-02-14] MEDS ORDERED: BCG (23:50)
[2017-02-14] MEDS ORDERED: DITRO5 PO (23:50)
[2017-02-14] MEDS ORDERED: PRILOSEC40 MG PO (23:50)
[2017-02-14] MEDS ORDERED: PYR200 PO (23:51)
[2017-02-14] MEDS ORDERED: MIRALAX POWDER1 PKT PO (23:51)
[2017-02-14] MEDS ORDERED: ULTRAM50 PO (23:52)
[2017-02-14] MEDS ORDERED: CARASPUDL PO (23:52)
[2017-02-14] MEDS ORDERED: FLOMAX4 PO (23:52)
[2017-02-14] MEDS ORDERED: OTC NASAL SPRAY NAS (23:54)
[2017-02-19] MEDS ORDERED: DURICEF PO (14:37)
[2017-02-19] MEDS ORDERED: PROSCAR5 PO (14:40)
[2017-04-24] MEDS ORDERED: CARASPUDL PO (20:43)
[2017-04-24] MEDS ORDERED: LOP25 PO (20:44)
[2017-04-24] MEDS ORDERED: ACET500CAP PO (20:44)
[2017-04-24] MEDS ORDERED: FLOMAX4 PO (20:44)
[2017-04-24] MEDS ORDERED: SYN.05 PO (20:44)
[2017-04-24] MEDS ORDERED: MYCOSCROI TOP (20:45)
[2017-04-24] MEDS ORDERED: PRILOSEC40 MG PO (20:46)
[2017-04-24] MEDS ORDERED: VOLTAREN1 % TOP (20:46)
[2017-04-24] MEDS ORDERED: ZYRTEC ALLGY10 MG PO (20:47)
[2017-04-24] MEDS ORDERED: LEVSINTAB PO (20:47)
[2017-04-24] MEDS ORDERED: PYR200 PO (20:48)
[2017-04-24] MEDS ORDERED: DITRO5 PO (20:49)
[2017-04-24] MEDS ORDERED: ZOFRAN4 PO (20:49)
[2017-04-24] MEDS ORDERED: ACULARLS OPH (20:49)
[2017-04-24] MEDS ORDERED: BENTYL10 PO (20:49)
[2017-04-24] MEDS ORDERED: ELIQUIS 5 MG TAB5 MG PO (20:50)
[2017-04-24] MEDS ORDERED: NEUR300 PO (20:51)
[2017-04-24] MEDS ORDERED: ULTRAM50 PO (20:52)
[2017-04-24] MEDS ORDERED: PROSCAR5 PO (20:53)
[2017-05-03] MEDS ORDERED: CORDARONE PO (10:23)
[2017-05-03] MEDS ORDERED: CEFT5 PO (10:25)
[2017-05-03] MEDS ORDERED: CIPOTIC OT (10:26)
[2017-05-03] MEDS ORDERED: LOP50 PO (10:29)
[2017-05-03] MEDS ORDERED: PYR200 PO (10:32)
== END 2016-11-09 16:30 | disposition home or self-care (01) ==
LOC: CDU2 03:02
PROVIDERS: Internal Medicine
DX: M54.10 Radiculopathy, site unspecified (principal); I48.91 Unspecified atrial fibrillation; K59.00 Constipation, unspecified; N39.0 Urinary tract infection, site not specified; E03.9 Hypothyroidism, unspecified; I73.9 Peripheral vascular disease, unspecified; I12.9 Hypertensive chronic kidney disease with stage 1 through stage 4 chronic kidney disease, or unspecified chronic kidney disease; K21.9 Gastro-esophageal reflux disease without esophagitis; N18.2 Chronic kidney disease, stage 2 (mild); M19.90 Unspecified osteoarthritis, unspecified site; Z88.5 Allergy status to narcotic agent; Z88.8 Allergy status to other drugs, medicaments and biological substances; Z90.49 Acquired absence of other specified parts of digestive tract; Z98.41 Cataract extraction status, right eye; Z98.42 Cataract extraction status, left eye; Z85.46 Personal history of malignant neoplasm of prostate; Z86.73 Personal history of transient ischemic attack (TIA), and cerebral infarction without residual deficits; Z79.899 Other long term (current) drug therapy; Z85.51 Personal history of malignant neoplasm of bladder
CPT/HCPCS: 71010; 80048; 80076; 83735; 83880; 84439; 84443; 84484; 85025; 85610; 85730; 93005; 96374; 96375; 96376; 97162-GP; A9270-GY; G0378; G8978-CI-GP; G8979-CI-GP; G8980-CI-GP; J0360

== ENCOUNTER 2016-11-10 12:14 | Inpatient (IN) | payer MEDICARE, OTHER ==
--- NOTE | ~2016-11-10 | DS ---
Discharge Summary [facility] [address] [place]. [address] NAME: MARGUERITE ALEX : 30 STATUS : DIS IN PAT#: [id number] AGE: 86 ADM/REG DATE : 11/10/16 MR#: [id number] REPORT SERV DATE: 11/16/16 DICTATED BY: DATE: REPORT STATUS : Draft TRANSCRIBED BY: MODL DATE: 11/15/16 ADMISSION DATE: 11/10/2016 DISCHARGE DATE: 11/15/2016 The patient was admitted to the [facility]. ATTENDING DOCTOR: Dr. Nadir Arenas and Dr. Dov Bradley. DISCHARGE DIAGNOSES: 1. Somnolence and lethargy, medication-induced encephalopathy present at admission, due to narcotics. Resolved. 2. Narcotic-induced ileus and constipation, resolved. 3. Acute kidney injury present at admission, resolved. 4. Recent urinary tract infection, for outpatient completion of recently prescribed ampicillin course. 5. History of bladder and prostate cancer. 6. Paroxysmal atrial fibrillation, rate controlled, anticoagulated on Eliquis. 7. Recently diagnosed severe back pain, with recommendation, last hospitalization for conservative management and outpatient followup scheduled with Dr. Noyola on 11/23/2016. 8. Hypothyroidism. 9. Hypertension, controlled. 10.Osteoarthritis. 11.Peripheral arterial disease with prior endovascular stenting. 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 13.Gastroesophageal reflux disease. IMAGING AND DIAGNOSTICS: 1. CT of the abdomen and pelvis without contrast on 11/10/2016 for abdominal pain shows fluid and gas containing dilated proximal and mid small bowel with nondilated distal ilium likely low-grade partial small bowel obstruction versus ileus. Diverticulosis with no evidence of diverticulitis. Calcific atherosclerosis with abdominal aortic aneurysm and partially imaged stent graft in the lower thoracic aorta. Prior cholecystectomy. Stable right renal cyst. Right hip prosthesis producing artifact. Metallic prostate seed implants. 2. Brain CT without contrast on 11/10/2016 for somnolent shows no acute intracranial abnormality. Atrophy. Chronic microvascular white matter ischemic change. 3. Portable chest x-ray 11/10/2016 shows left lung base atelectasis, improving. 4. AP and upright abdominal films 0n 11/11/2016 shows nonspecific gas pattern, could indicate mild ileus. No evidence of obstruction. PERTINENT LABORATORY: Blood gas at admission showed pH 7.48, pCO2 of 33, pO2 of 77, oxygen saturation 95% on room air. Admission creatinine 1.6 and discharge creatinine 1.1. TSH 2.76 with free T4 of 1.28. BNP 401. Urinalysis showed cloudy urine with protein, large amount of blood, moderate leukocyte esterase, nitrite positive. Greater than 182 white blood cells, greater than 182 red blood cells, many white blood cell clumps, and 20 hyaline Discharge Summary [address] [address] NAME: MARGUERITE ALEX : 30 STATUS : DIS IN PAT#: [id number] AGE: 86 ADM/REG DATE : 11/10/16 MR#: [id number] REPORT SERV DATE: 11/16/16 DICTATED BY: DATE: REPORT STATUS : Draft TRANSCRIBED BY: MODL DATE: 11/15/16 casts. Subsequent culture showed less than 5000 colony-forming units of mixed gram-positive cocci. Prior urinary culture from 11/05/2016 showed greater than 100,000 colony-forming units of pansensitive E coli. BRIEF HISTORY: For full details please see the previously dictated history of present illness by Dr. Farrukh Portillo. This is an 86-year-old white male with recent admission on 11/07/2016 and discharged on 11/09/2016, who re-presented to the emergency department on 11/10/2016 with abdominal pain, constipation, somnolence, and lethargy. His hospitalization from 11/07/2016 through 11/09/2016 was for atrial fibrillation with rapid ventricular response, spontaneously converted to a normal sinus rhythm. During the admission, he complained of severe back pain with radiation down his legs. The patient was seen at that time by Dr. Noyola of Orthopedic Surgery. Due to chronic anticoagulation, conservative management was recommended with analgesia and physical therapy. The patient was started on OxyContin 10 mg twice a day with Percocet 10/325 mg one to two tablets every four hours as needed. He was evaluated by rehabilitation prior to that discharge, but did not qualify as he was able to ambulate greater than 150 feet. He was discharged home with home health and Physical Therapy. Regarding the abdominal pain, the patient had a CT of abdomen and pelvis in the emergency department demonstrating possible ileus versus partial small bowel obstruction. He did have somnolence with periods of apnea on high doses of narcotics. He was treated with Narcan and improved. He was referred to the Hospitalist Service for side effects of narcotic therapy. HOSPITAL COURSE: For full details please reference progress notes by Dr. Portillo and Dagoberto from 11/11/2016 through 11/14/2016. I assumed care of the patient on 11/15/2016 at which point, his somnolence, lethargy, medication-induced encephalopathy had been resolved for several days. His narcotic-induced ileus had also been resolved for several days with a bowel regimen and initiation of Movantik this admission. The patient denied any abdominal pain, and was having at least one to two bowel movements per day, and able to tolerate an oral diet. His was concerned that he remained weak, but he was evaluated by Physical therapy, and again found to be able to ambulate independently more than 150 feet on several occasions. Thus, he was not felt to be a candidate for acute inpatient rehab. Several SNFs with rehab were offered to the patient and family, but they declined. Thus, the patient is being discharged to home with home health and home physical therapy. Again, and close followup with Dr. Deshawn Noyola as previously scheduled on 11/23/2016. Regarding medication regimen, he is encouraged to continue OxyContin, but not to take any Percocet at this time. He has been taken off Movantik, but we will continue a stool softener and MiraLAX and follow up with his primary care provider if he experiences any recurrence of narcotic bowel symptoms. He had acute kidney injury at admission, which resolved during the hospitalization. He had been initiated on treatment with ampicillin for urinary tract infection, which was diagnosed on 11/05/2016. He has one additional day of antibiotics to complete the Discharge Summary [address] [address] NAME: MARGUERITE ALEX : 30 STATUS : DIS IN PAT#: [id number] AGE: 86 ADM/REG DATE : 11/10/16 MR#: [id number] REPORT SERV DATE: 11/16/16 DICTATED BY: DATE: REPORT STATUS : Draft TRANSCRIBED BY: MODL DATE: 11/15/16 previously outlined course. DISCHARGE DISPOSITION: To home in the care of his supportive with home health and home physical therapy. No specific activity restrictions at present. He should adhere to a cardiac diet for his comorbidities. His was also instructed carefully on narcotic medications for discharge, and encouraged to contact physicians or EMS for any recurrence of somnolence and lethargy. DISCHARGE FOLLOWUP: Appointments will be with Dr. Deshawn Noyola on 11/23/[address] Unger in the next two to three weeks, and with primary care provider, Anna Norton M.D. within two to three weeks. DISCHARGE MEDICATIONS: Include: 1. Eliquis 5 mg p.o. twice a day. 2. Bentyl 10 mg p.o. three times a day. 3. Neurontin 300 mg p.o. three times a day. 4. Levsin 0.125 mg p.o. three times a day. 5. Levothyroxine 50 mcg p.o. daily. 6. Zyrtec 10 mg p.o. daily. 7. Lopressor 25 mg p.o. twice a day. 8. Ditropan 5 mg p.o. three times a day. 9. Prilosec 40 mg p.o. daily. 10.MiraLax one packet p.o. twice a day p.r.n. constipation. 11.Azo one tablet p.o. three times a day. 12.Carafate 1 g p.o. four times a day. 13.Flomax 0.4 mg p.o. at bedtime. 14.Ultram 50 mg three times a day. 15.Pyridium 200 mg p.o. three times a day. 16.Ampicillin 500 mg p.o. q.6 hours for four additional doses, then stop. 17.OxyContin 10 mg p.o. every 12 hours. 18.Colace 100 mg p.o. b.i.d. 35 minutes was spent in completion of the discharge. AKS/MODL Dov Bradley M.D. / [id number] CC: Farrukh Portillo Jr, MD Cari Beth Page, M.D. J. Patrick Dilworth, M.D. Brian Noyola II, M.D.
--- NOTE | ~2016-11-10 | HP ---
History And Physical [facility] [address] [place]. [address] NAME: MARGUERITE ALEX : 30 STATUS : ADM IN PAT#: [id number] AGE: 86 ADM/REG DATE : 11/10/16 MR#: [id number] REPORT SERV DATE: 11/10/16 DICTATED BY: JR. PORTILLO WILLIAM JOHN DATE: 11/10/16 REPORT STATUS : Draft TRANSCRIBED BY: MODJoss DATE: 11/10/16 DATE OF ADMISSION: 11/10/2016 HISTORY OF PRESENT ILLNESS: An 86-year-old male, just discharged by me after a stay from 11/07/2016 through 11/09/2016. The patient is initially presented to [facility] on 11/07/2016, he was found have atrial fibrillation with rapid ventricular response. His exhibit technician was at [facility], and he was subsequently transferred to the Cardiology service at [facility]. Prior to arrival at [facility], the patient spontaneously reverted to sinus rhythm; however, complained of severe back pain with radiation down to his legs. The patient was seen at that time by Dr. Noyola of Orthopedic Surgery. The patient is on anticoagulation for his atrial fibrillation. Dr. Noyola therefore felt that any intervention would need to be delayed and recommended analgesia and physical therapy. The patient was started on OxyContin 10 mg twice a day with Percocet 10/325, one to two tablets every four hours as needed. He was evaluated by rehabilitation, however, did not qualify as he was ambulating autonomously, was subsequently discharged home with home physical therapy. Since discharge home, the patient has had abdominal pain. His says that he has had no bowel movement; however, he did have a bowel movement in the emergency room. The patient is very somnolent, has periods of apnea, was unable to get history from the patient. Therefore, review of systems and history of present illness are incomplete. PAST MEDICAL HISTORY: Includes. 1. Recurrent urinary tract infection. 2. History of bladder and prostate cancer, status post brachytherapy to the prostate with recurrent cystoscopy with tumor removal by Dr. Unger and a history of urinary retention. 3. Hypothyroidism. 4. Paroxysmal atrial fibrillation. 5. Hypertension. 6. Osteoarthritis. 7. Peripheral arterial disease with endovascular stenting. 8. Left eye blindness. 9. Gastroesophageal reflux disease. 10.History of left eye surgery. 11.Inguinal hernia repair. 12.Left rotator cuff repair. 13.Back surgery. 14.History of Clarence fundoplication. 15.Transurethral resection of prostate. 16.History of cataract surgery. 17.Gastric ulcer surgery. 18.Thoracic aortic aneurysm with repair. 19.Right total hip arthroplasty. 20.Cardiac ablation. History And Physical [address] [address] NAME: MARGUERITE ALEX : 30 STATUS : ADM IN [facility]#: [id number] AGE: 86 ADM/REG DATE : 11/10/16 MR#: [id number] REPORT SERV DATE: 11/10/16 DICTATED BY: JR. PORTILLO WILLIAM JOHN DATE: 11/10/16 REPORT STATUS : Draft TRANSCRIBED BY: TAN DATE: 11/10/16 MEDICATIONS: Include: 1. Ampicillin 500 mg orally four times a day through 11/15. 2. Apixaban 5 mg twice a day. 3. Cetirizine 10 mg orally daily. 4. Bentyl 10 mg orally three times a day. 5. Neurontin 300 mg three times a day. 6. Levsin 0.125 mg three times a day. 7. Synthroid 50 mcg daily. 8. Metoprolol 25 mg orally twice a day. 9. Omeprazole 40 mg orally daily. 10.Oxybutynin 5 mg orally three times a day. 11.OxyContin 10 mg every 12 hours. 12.Percocet 10/325 every four hours as needed. 13.Pyridium 200 mg three times a day. 14.MiraLAX one packet twice a day. 15.Sucralfate 1 g before meals at bedtime. 16.Flomax 0.4 mg daily. 17.Tramadol 50 mg orally three times a day. ALLERGIES: TO ASPIRIN AND CODEINE. FAMILY HISTORY: Includes coronary artery disease and hypertension. SOCIAL HISTORY: Lives with his . Denies tobacco, alcohol, or illicit drugs. REVIEW OF SYSTEMS: Review of systems was not possible due to the patient's somnolence. PHYSICAL EXAMINATION: VITAL SIGNS: Temperature 97.6, blood pressure 122/72, heart rate 76, respiratory rate 22. GENERAL: The patient was somnolent, was arousable but did not speak. HEENT: His left eye was deviated laterally and superiorly, unable to perform extraocular motion exam due to somnolence. Oropharynx is grossly clear. NECK: Supple. No jugular venous distention, thyromegaly, or bruits. LUNGS: Clear to auscultation with deep inspiration. ABDOMEN: Obese, mildly tender, bowel sounds present. EXTREMITIES: Show no clubbing, cyanosis, or edema. NEUROLOGIC: Exam was unable to be performed. PSYCHIATRIC: Exam was unable to be performed. LYMPH NODE SURVEY: Negative in cervical and supraclavicular region. LABORATORY: Arterial blood gas, pH 7.48, pCO2 of 33, PO2 of 77 on 2 L. White count of 15.7, hemoglobin 14.2, platelets 199, sodium 136, potassium 4, chloride 100, bicarb 26, BUN 24, creatinine 1.6, glucose 89, total protein 7.7, albumin 3.7, calcium 10, total bilirubin 0.7, alk phosphatase 266, lipase 111. AST 25, ALT 61. CT of the brain showed no acute findings with atrophy and chronic ischemic white matter History And Physical [address] [address] NAME: MARGUERITE ALEX : 30 STATUS : ADM IN PAT#: [id number] AGE: 86 ADM/REG DATE : 11/10/16 MR#: [id number] REPORT SERV DATE: 11/10/16 DICTATED BY: JR. PORTILLO WILLIAM JOHN DATE: 11/10/16 REPORT STATUS : Draft TRANSCRIBED BY: TAN DATE: 11/10/[address] of the abdomen and pelvis showed fluid and air in the proximal and mid small-bowel with non-dilated ileum, possible small-bowel obstruction. Otherwise, no acute findings. ASSESSMENT AND PLAN: An 86-year-old white male with, 1. Somnolence with periods of apnea, on high-dose narcotic. We did check an arterial blood gas. The patient is not hypercarbic, we will give Narcan 0.2 to 0.4 p.r.n. and collect serial cardiac enzymes, likely somnolence is due to narcotic effects. 2. Partial small bowel obstruction versus ileus in setting of narcotic use. We will give MiraLAX, Dulcolax suppositories, and consider Movantik. 3. Renal insufficiency. We will give IV fluids 125 mL/h for 2 L and 75 mL/h. 4. Bilateral back pain with radiculopathy, down both legs, recently evaluated by Dr. Noyola with recommendation for analgesia and therapy with delayed orthopedic evaluation. 5. Escherichia coli urinary tract infection, continue ampicillin through 11/15. 6. History of prostate and bladder cancer, recently seen by Dr. Unger with no suggestions at this point. 7. Hypothyroidism, continue replacement. 8. Peripheral arterial disease. 9. Hypertension. 10.The patient is full code. 11.I will follow this patient. WJF/MODL Farrukh Portillo Jr, MD / [id number] CC: MD Anna Angel M.D.
[~2016-11-10 12:14] MED LIST changes: +AMPI500 PO; +AZO-STANDARD95 MG PO; +BENTYL10 PO; +CARASPUDL PO; +DITRO5 PO; +LEVSINTAB PO; +MIRALAX POWDER1 PKT PO; +OXYCON10 PO; +PERCOCET 10/3251 TAB PO; +PYR200 PO; +[UNRECOGNIZED DRUG - OTHER]
[2016-11-10 12:15] LABS: BASOPHILS 0.2 %; BASOPHILS ABSOLUTE 0.03 10/3/uL (0.0-0.16); EOSINOPHILS 1.5 %; EOSINOPHILS ABSOLUTE 0.24 10/3/uL (0.0-0.53); ER CBC TAT 0 Hrs 10 Mins; HEMATOCRIT 41.3 % (40.0-51.0); HEMOGLOBIN 14.2 g/dL (13.6-17.8); IMMATURE GRANULOCYTES 0.3 %; IMMATURE GRANULOCYTES ABSOLUTE 0.04 10/3/uL (0.0-0.11); LYMPHOCYTES 5.2 %; LYMPHOCYTES ABSOLUTE 0.81 10/3/uL (0.67-4.30); MANUAL DIFF NO %; MEAN CORPUS HGB CONC 34.4 g/dL (32.0-36.0); MEAN CORPUSCULAR HEMOGLOB 33.1 pg (26.0-34.0); MEAN CORPUSCULAR VOLUME 96.3 fL (80-100); MEAN PLATELET VOLUME 9.4 fL (9.2-13.0); MONOCYTES 3.9 %; MONOCYTES ABSOLUTE 0.61 10/3/uL (0.21-1.20); NEUTROPHILS 88.9 %; NEUTROPHILS ABSOLUTE 13.97 10/3/uL (2.02-8.40); PLATELET COUNT 199 10/3/uL (150-400); RBC DISTRIBUTION WIDTH 13.3 % (12.0-16.0); RED CELL COUNT 4.29 10/6/uL (4.7-6.1); WHITE BLOOD CELLS 15.7 10/3/uL (4.5-10.5)
[2016-11-10 12:49] LABS: A/G RATIO 0.9 (0.7-1.9); ALBUMIN 3.7 G/DL (3.5-5.0); ALKALINE PHOSPHATASE 262 U/L (45-117); BUN (BLOOD UREA NITROGEN) 24 MG/DL (6-23); CHLORIDE, SERUM 100 MMOL/L (96-112); CO2 (CARBON DIOXIDE) 26 MMOL/L (24-34); GFR AFRICAN AMERICAN 45 ML/MIN (>=60); GFR NON AFRICAN AMERICAN 38 ML/MIN (>=60); GLUCOSE, SERUM 89 MG/DL (60-99); SGOT(AST) 25 U/L (5-40); SGPT(ALT) 61 U/L (5-65); SODIUM, SERUM 136 MMOL/L (135-148); TOTAL BILIRUBIN 0.7 MG/DL (0-1.2); TOTAL PROTEIN 7.7 G/DL (6.0-8.5)
[2016-11-10 15:58] LABS: ALLENS TEST Pos; BE (BASE EXCESS) 0.9 MEQ/L (0 +/- 2.5); CARBOXYHEMOGLOBIN 2.2 % (0-3); DEVICE NC; HCO3 (ACTUAL BICARBONATE) 23.8 MEQ/L (23-27); HEMOBLOGIN CONTENT 12.5 G/DL (14-18); INSTRUMENT SERIAL # 8087; METHEMOGLOBIN 0.2 % (0-3); O2 CONTENT 16.3 VOL% (18-24); PCO2 (CO2 TENSION) 33 MMHG (35-45); PO2 (O2 TENSION) 77 MMHG (79-93); SAMPLE Arterial; pH 7.48 (7.37-7.43)
[2016-11-10 18:28] LABS: ASCORBIC ACID (UR NOT ORDER) NEG (NEG); BILIRUBIN, URINE NEGATIVE (NEG); ER URINALYSIS TAT 0 Hrs 14 Mins; KETONE, URINE NEGATIVE (NEG); LEUKOCYTE ESTERASE(NOT OR MOD (NEG); NITRITE (URINE) POS (NEG); WBC (NOT ORDERED) (RFLEX) > 182 (0-5)
[2016-11-11 01:43] LABS: MEAN CORPUS HGB CONC 32.9 g/dL (32.0-36.0); MEAN CORPUSCULAR HEMOGLOB 32.1 pg (26.0-34.0); MEAN CORPUSCULAR VOLUME 97.4 fL (80-100); MEAN PLATELET VOLUME 9.6 fL (9.2-13.0); PLATELET COUNT 200 10/3/uL (150-400); RBC DISTRIBUTION WIDTH 13.8 % (12.0-16.0); RED CELL COUNT 3.52 10/6/uL (4.7-6.1)
[2016-11-11 01:45] LABS: HEMATOCRIT 34.3 % (40.0-51.0); HEMOGLOBIN 11.3 g/dL (13.6-17.8); MANUAL DIFF YES %; WHITE BLOOD CELLS 7.9 10/3/uL (4.5-10.5)
[2016-11-11 02:01] LABS: CHLORIDE, SERUM 105 MMOL/L (96-112); CO2 (CARBON DIOXIDE) 28 MMOL/L (24-34); CREATININE 1.76 MG/DL (0.70-1.30); GFR AFRICAN AMERICAN 40 ML/MIN (>=60); GFR NON AFRICAN AMERICAN 34 ML/MIN (>=60); POTASSIUM, SERUM 4.2 MMOL/L (3.5-5.3); SODIUM, SERUM 141 MMOL/L (135-148); TROPONIN I <0.02 NG/ML (<0.05)
[2016-11-11 02:03] LABS: BUN (BLOOD UREA NITROGEN) 31 MG/DL (6-23); CALCIUM, SERUM 8.8 MG/DL (8.5-10.4); GLUCOSE, SERUM 112 MG/DL (60-99)
[2016-11-11 02:04] LABS: BAND NEUTROPHILS 4 %; EOSINOPHILS 1 %; EOSINOPHILS ABSOLUTE (CALC) 0.08 10/3/uL (0.0-0.53); LYMPHOCYTES 5 %; MONOCYTES 7 %; MONOCYTES ABSOLUTE (CALC) 0.55 10/3/uL (0.21-1.20); NEUTROPHILS ABSOLUTE (CALC) 6.87 10/3/uL (2.02-8.40); RBC MORPHOLOGY NORM (NORMAL); SEGMENTED NEUTROPHIL (0) 83 %; TOTAL NUCLEATED CELLS 100
[2016-11-11 03:37] LABS: ALLENS TEST Pos; BE (BASE EXCESS) 1.7 MEQ/L (0 +/- 2.5); CARBOXYHEMOGLOBIN 1.9 % (0-3); HCO3 (ACTUAL BICARBONATE) 25.6 MEQ/L (23-27); HEMOBLOGIN CONTENT 11.6 G/DL (14-18); INSTRUMENT SERIAL # 8083; METHEMOGLOBIN 0.3 % (0-3); O2 CONTENT 15.5 VOL% (18-24); OPERATOR ID 14661; PCO2 (CO2 TENSION) 37 MMHG (35-45); PO2 (O2 TENSION) 91 MMHG (79-93); SAMPLE Arterial; pH 7.45 (7.37-7.43)
[2016-11-12 06:33] LABS: BASOPHILS 0.7 %; BASOPHILS ABSOLUTE 0.03 10/3/uL (0.0-0.16); EOSINOPHILS 6.7 %; EOSINOPHILS ABSOLUTE 0.28 10/3/uL (0.0-0.53); HEMATOCRIT 34.9 % (40.0-51.0); HEMOGLOBIN 11.4 g/dL (13.6-17.8); IMMATURE GRANULOCYTES 0.5 %; IMMATURE GRANULOCYTES ABSOLUTE 0.02 10/3/uL (0.0-0.11); LYMPHOCYTES 19.4 %; LYMPHOCYTES ABSOLUTE 0.81 10/3/uL (0.67-4.30); MEAN CORPUS HGB CONC 32.7 g/dL (32.0-36.0); MEAN CORPUSCULAR HEMOGLOB 32.1 pg (26.0-34.0); MEAN CORPUSCULAR VOLUME 98.3 fL (80-100); MEAN PLATELET VOLUME 9.3 fL (9.2-13.0); MONOCYTES 9.1 %; MONOCYTES ABSOLUTE 0.38 10/3/uL (0.21-1.20); NEUTROPHILS 63.6 %; NEUTROPHILS ABSOLUTE 2.65 10/3/uL (2.02-8.40); PLATELET COUNT 175 10/3/uL (150-400); RBC DISTRIBUTION WIDTH 13.3 % (12.0-16.0); RED CELL COUNT 3.55 10/6/uL (4.7-6.1)
[2016-11-12 06:34] LABS: MANUAL DIFF NO %; WHITE BLOOD CELLS 4.2 10/3/uL (4.5-10.5)
[2016-11-12 06:41] LABS: CHLORIDE, SERUM 106 MMOL/L (96-112); CO2 (CARBON DIOXIDE) 28 MMOL/L (24-34); GFR AFRICAN AMERICAN 61 ML/MIN (>=60); GFR NON AFRICAN AMERICAN 52 ML/MIN (>=60); GLUCOSE, SERUM 106 MG/DL (60-99); POTASSIUM, SERUM 4.5 MMOL/L (3.5-5.3); SODIUM, SERUM 141 MMOL/L (135-148)
[2016-11-12 06:45] LABS: BUN (BLOOD UREA NITROGEN) 27 MG/DL (6-23); CREATININE 1.24 MG/DL (0.70-1.30)
[2016-11-14 04:33] LABS: BASOPHILS 0.4 %; BASOPHILS ABSOLUTE 0.02 10/3/uL (0.0-0.16); EOSINOPHILS ABSOLUTE 0.42 10/3/uL (0.0-0.53); HEMATOCRIT 36.6 % (40.0-51.0); IMMATURE GRANULOCYTES 0.4 %; IMMATURE GRANULOCYTES ABSOLUTE 0.02 10/3/uL (0.0-0.11); LYMPHOCYTES 17.6 %; LYMPHOCYTES ABSOLUTE 0.82 10/3/uL (0.67-4.30); MEAN CORPUS HGB CONC 32.8 g/dL (32.0-36.0); MEAN CORPUSCULAR HEMOGLOB 32.1 pg (26.0-34.0); MEAN CORPUSCULAR VOLUME 97.9 fL (80-100); MEAN PLATELET VOLUME 9.3 fL (9.2-13.0); MONOCYTES 8.6 %; NEUTROPHILS ABSOLUTE 2.98 10/3/uL (2.02-8.40); PLATELET COUNT 214 10/3/uL (150-400); RBC DISTRIBUTION WIDTH 13.3 % (12.0-16.0); RED CELL COUNT 3.74 10/6/uL (4.7-6.1); WHITE BLOOD CELLS 4.7 10/3/uL (4.5-10.5)
[2016-11-14 04:34] LABS: MANUAL DIFF NO %
[2016-11-14 04:48] LABS: CALCIUM, SERUM 9.6 MG/DL (8.5-10.4); CHLORIDE, SERUM 104 MMOL/L (96-112); CO2 (CARBON DIOXIDE) 28 MMOL/L (24-34); CREATININE 1.12 MG/DL (0.70-1.30); GFR AFRICAN AMERICAN 69 ML/MIN (>=60); GFR NON AFRICAN AMERICAN 59 ML/MIN (>=60); GLUCOSE, SERUM 104 MG/DL (60-99); POTASSIUM, SERUM 4.4 MMOL/L (3.5-5.3); SODIUM, SERUM 141 MMOL/L (135-148)
[2016-11-14 04:49] LABS: BUN (BLOOD UREA NITROGEN) 21 MG/DL (6-23)
[2016-11-15] MEDS ORDERED: PCET PO (10:23)
[2016-11-15] MEDS ORDERED: DSS PO (10:29)
[2016-12-20] MEDS ORDERED: ANASPAZ0.125 MG SL (10:00)
[2016-12-20] MEDS ORDERED: ZOFRAN4 PO (10:01)
[2017-02-14] MEDS ORDERED: STOOL SOFTENER PO (23:45)
[2017-02-14] MEDS ORDERED: NEUR300 PO (23:46)
[2017-02-14] MEDS ORDERED: ELIQUIS 5 MG TAB5 MG PO (23:46)
[2017-02-14] MEDS ORDERED: ZYRTEC ALLGY10 MG PO (23:46)
[2017-02-14] MEDS ORDERED: BENTYL10 PO (23:46)
[2017-02-14] MEDS ORDERED: LOP25 PO (23:47)
[2017-02-14] MEDS ORDERED: ZOFRAN4 PO (23:47)
[2017-02-14] MEDS ORDERED: LEVOTHYROXIN50 MCG PO (23:47)
[2017-02-14] MEDS ORDERED: MYCOSCROI TOP (23:47)
[2017-02-14] MEDS ORDERED: BLINK TEARS OPH (23:48)
[2017-02-14] MEDS ORDERED: VOLTAREN1 % TOP (23:48)
[2017-02-14] MEDS ORDERED: PRILOSEC40 MG PO (23:50)
[2017-02-14] MEDS ORDERED: BCG (23:50)
[2017-02-14] MEDS ORDERED: DITRO5 PO (23:50)
[2017-02-14] MEDS ORDERED: MIRALAX POWDER1 PKT PO (23:51)
[2017-02-14] MEDS ORDERED: PYR200 PO (23:51)
[2017-02-14] MEDS ORDERED: ULTRAM50 PO (23:52)
[2017-02-14] MEDS ORDERED: CARASPUDL PO (23:52)
[2017-02-14] MEDS ORDERED: FLOMAX4 PO (23:52)
[2017-02-14] MEDS ORDERED: OTC NASAL SPRAY NAS (23:54)
[2017-02-19] MEDS ORDERED: DURICEF PO (14:37)
[2017-02-19] MEDS ORDERED: PROSCAR5 PO (14:40)
[2017-04-24] MEDS ORDERED: CARASPUDL PO (20:43)
[2017-04-24] MEDS ORDERED: ACET500CAP PO (20:44)
[2017-04-24] MEDS ORDERED: LOP25 PO (20:44)
[2017-04-24] MEDS ORDERED: SYN.05 PO (20:44)
[2017-04-24] MEDS ORDERED: FLOMAX4 PO (20:44)
[2017-04-24] MEDS ORDERED: MYCOSCROI TOP (20:45)
[2017-04-24] MEDS ORDERED: VOLTAREN1 % TOP (20:46)
[2017-04-24] MEDS ORDERED: PRILOSEC40 MG PO (20:46)
[2017-04-24] MEDS ORDERED: LEVSINTAB PO (20:47)
[2017-04-24] MEDS ORDERED: ZYRTEC ALLGY10 MG PO (20:47)
[2017-04-24] MEDS ORDERED: PYR200 PO (20:48)
[2017-04-24] MEDS ORDERED: DITRO5 PO (20:49)
[2017-04-24] MEDS ORDERED: BENTYL10 PO (20:49)
[2017-04-24] MEDS ORDERED: ZOFRAN4 PO (20:49)
[2017-04-24] MEDS ORDERED: ACULARLS OPH (20:49)
[2017-04-24] MEDS ORDERED: ELIQUIS 5 MG TAB5 MG PO (20:50)
[2017-04-24] MEDS ORDERED: NEUR300 PO (20:51)
[2017-04-24] MEDS ORDERED: ULTRAM50 PO (20:52)
[2017-04-24] MEDS ORDERED: PROSCAR5 PO (20:53)
[2017-05-03] MEDS ORDERED: CORDARONE PO (10:23)
[2017-05-03] MEDS ORDERED: CEFT5 PO (10:25)
[2017-05-03] MEDS ORDERED: CIPOTIC OT (10:26)
[2017-05-03] MEDS ORDERED: LOP50 PO (10:29)
[2017-05-03] MEDS ORDERED: PYR200 PO (10:32)
== END 2016-11-15 12:59 | disposition home health service (06) | DRG 388 ==
LOC: ER 12:14 → 4SO 18:19
PROVIDERS: Emergency Medicine; Internal Medicine
DX: K56.7 Ileus, unspecified (principal); G92 Toxic encephalopathy; N17.9 Acute kidney failure, unspecified; I48.0 Paroxysmal atrial fibrillation; T40.2X5A Adverse effect of other opioids, initial encounter; I73.9 Peripheral vascular disease, unspecified; I10 Essential (primary) hypertension; E03.9 Hypothyroidism, unspecified; M19.90 Unspecified osteoarthritis, unspecified site; H54.42 Blindness, left eye, normal vision right eye; K21.9 Gastro-esophageal reflux disease without esophagitis; Z96.641 Presence of right artificial hip joint; Z79.01 Long term (current) use of anticoagulants; Z85.46 Personal history of malignant neoplasm of prostate; Z85.51 Personal history of malignant neoplasm of bladder; Z88.5 Allergy status to narcotic agent; Z88.6 Allergy status to analgesic agent; Z98.890 Other specified postprocedural states; B96.20 Unspecified Escherichia coli [E. coli] as the cause of diseases classified elsewhere; M54.10 Radiculopathy, site unspecified
CPT/HCPCS: 36600; 70450; 71010; 74020; 74176; 80048; 80053; 80076; 81001; 82805; 83690; 83735; 83880; 84439; 84443; 84484; 84703; 85025; 85610; 85730; 87086; 93005; 97116-GP; 97162-GP; 97165-GO; 99285; A9270-GY; G8978-CJ-GP; G8979-CH-GP; G8987-CJ-GO; G8988-CI-GO; J0360

== ENCOUNTER 2016-12-23 05:39 | Observation (INO) | payer MEDICARE, OTHER ==
[2016-12-16 14:00] LABS: HEMATOCRIT 38.3 % (40.0-51.0); HEMOGLOBIN 12.7 g/dL (13.6-17.8)
[2016-12-16 14:17] LABS: BUN (BLOOD UREA NITROGEN) 31 MG/DL (6-23); CALCIUM, SERUM 9.4 MG/DL (8.5-10.4); CHLORIDE, SERUM 105 MMOL/L (96-112); CO2 (CARBON DIOXIDE) 32 MMOL/L (24-34); GFR AFRICAN AMERICAN 57 ML/MIN (>=60); GFR NON AFRICAN AMERICAN 49 ML/MIN (>=60); GLUCOSE, SERUM 95 MG/DL (60-99); POTASSIUM, SERUM 4.1 MMOL/L (3.5-5.3); SODIUM, SERUM 142 MMOL/L (135-148)
--- NOTE | ~2016-12-23 | OP ---
Record Of Operation [facility] [address] [place]. [address] NAME: MARGUERITE ALEX : 30 STATUS : ADM Jeanmarie PAT#: [id number] AGE: 86 ADM/REG DATE : 12/23/16 MR#: [id number] REPORT SERV DATE: 12/25/16 DICTATED BY: EDILSON NOYOLA II DATE: 12/25/16 REPORT STATUS : Draft TRANSCRIBED BY: MODL DATE: 12/25/16 DATE OF PROCEDURE: 12/23/2016 PREOPERATIVE DIAGNOSES: 1. Remote history of multilevel laminectomy. 2. 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 3. Left lower extremity radiculopathy. POSTOPERATIVE DIAGNOSES: 1. Remote history of multilevel laminectomy. 2. 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 3. Left lower extremity radiculopathy. PROCEDURES: 1. Revision laminectomy, L3-4, L4-5. 2. Use of the microscope and stereotactic spinal imaging. SURGEON: Edilson Noyola M.D. IV FLUIDS: 700 LR ESTIMATED BLOOD LOSS: 15 mL. DRAIN: One. COMPLICATIONS: None. ANTIBIOTIC: Preoperatively. PREOPERATIVE HISTORY: This is a very friendly 86-year-old gentleman, who does have a good support system including his who has been struggling with pain radiating from the back into the left leg. He does have a significant amount of back pain. I advised the patient and his that surgery was the last resort of course and overall, I discussed with him the fact that this surgery would be for the buttock and leg pain but would not likely be greatly reduce the back pain. They voiced understanding and wishes to proceed. DESCRIPTION OF PROCEDURE: After informed consent was obtained, the patient was brought to the operating room at his request and general anesthesia achieved. He was placed in the prone position. The back was prepped and draped in a sterile fashion. The stereotactic spinal pin was placed into the right iliac crest. The intraoperative CT scan completed. Stereotactic guidance was then used throughout the case. The minimally invasive incision was performed on the left at L3-4 and L4-5. The minimally invasive quadrant retractor was placed and the microscope was brought into place. Under microscopic visualization, the laminectomy was performed. This was a revision laminectomy. The curved curettes were used to detach the scar and ligamentum flavum. Additional facet Record Of Operation [facility] [address] [place]. [address] NAME: MARGUERITE ALEX : 30 STATUS : ADM Jeanmarie PAT#: [id number] AGE: 86 ADM/REG DATE : 12/23/16 MR#: [id number] REPORT SERV DATE: 12/25/16 DICTATED BY: EDILSON NOYOLA II DATE: 12/25/16 REPORT STATUS : Draft TRANSCRIBED BY: TAN DATE: 12/25/16 was now removed on the left at L4-5. The L5 nerve root was now found to be severely compressed from the facet and the ligamentum flavum. The majority of the ligamentum flavum was removed and a portion of facet removed to adequately decompress the L5 nerve root. The L4 nerve root in the foraminal zone had minimal compression upon it. Next, we worked up to the L3-4 level where upon the revision laminectomy and partial facetectomy was performed. Once again, the high-speed bur was used to remove additional facet. The curved curettes also were used to detach scar and additional ligamentum flavum. The dura was then well decompressed. At this point, the standard closure was performed following confirmation of adequate decompression of the L4 and L5 nerve roots at each level respectively. At this point, the deep drain was placed followed by standard closure, and the patient was then extubated and transferred to PACU in stable condition. ALIRIO/ATN Edilson Noyola II, M.D. / [id number] CC: Reza Link II, M.D.
--- NOTE | ~2016-12-23 | DS ---
Discharge Summary [facility] [address] [place]. [address] NAME: MARGUERITE ALEX : 30 STATUS : DIS Jeanmarie PAT#: [id number] AGE: 86 ADM/REG DATE : 12/23/16 MR#: [id number] REPORT SERV DATE: 01/03/17 DICTATED BY: EDILSON NOYOLA II DATE: 01/02/17 REPORT STATUS : Draft TRANSCRIBED BY: MODL DATE: 01/02/17 Data Collection from hospitalization DISCHARGE DIAGNOSES: 1. Remote history of multilevel laminectomy. 2. Recurrent stenosis at L3-4 and L4-5. 3. Left lower extremity radiculopathy. 4. Hypertension. 5. Congestive heart failure. 6. Gastroesophageal reflux disease. 7. Gout. 8. History of cardiovascular disease. 9. History of myocardial infarction. 10.History of prostate cancer. 11.Rheumatoid arthritis. 12.Thyroid disease. 13.Varicose veins. 14.History of skin cancer. 15.History of irregular heartbeat. CONSULTATIONS: None. PROCEDURES PERFORMED: Revision of laminectomy at L3-4 and L4-5, use of microscope and stereotactic spinal imaging on 12/23/2016. PATHOLOGY: Bone and soft tissue, lumbar spine excision - cartilage and bone. MEDICATIONS: Eliquis 5 mg twice a day, Zyrtec 10 mg daily, Bentyl 10 mg three times a day, Colace 100 mg twice a day, Neurontin 300 mg three times a day, Anaspaz 0.125 mg sublingually three times a day, levothyroxine 50 mcg daily, Lopressor 25 mg twice a day, Prilosec 40 mg daily, Zofran 4 mg every eight hours, Ditropan 5 mg three times a day, Percocet 5/325 one tablet at bedtime, Roxicodone 10 mg every four hours as needed, Pyridium 200 mg three times a day, MiraLAX one packet twice a day as needed, Carafate 1 g three times a day, Flomax 0.4 mg at bedtime, and Ultram 50 mg three times a day. CONDITION AT DISCHARGE: Stable. DISPOSITION: The patient was discharged home on a regular diet with activities as instructed. He would follow up with me on 01/17/2017. HOSPITAL COURSE: This is an 86-year-old man who complained of lumbar spine-related symptoms. The symptoms were located at the lower back with radiation into the bilateral lower extremities, left greater than right with associated numbness, tingling, and weakness. The patient has a remote history of multilevel laminectomy and recurrent stenosis at L3-4 and L4 5. There is also left lower extremity radiculopathy. Treatment options were discussed and it was elected to proceed with surgical intervention. He was admitted to the hospital at this time for further evaluation and treatment. Discharge Summary [address] [address] NAME: MARGUERITE ALEX : 30 STATUS : DIS Jeanmarie PAT#: [id number] AGE: 86 ADM/REG DATE : 12/23/16 MR#: [id number] REPORT SERV DATE: 01/03/17 DICTATED BY: EDILSON NOYOLA II DATE: 01/02/17 REPORT STATUS : Draft TRANSCRIBED BY: TNA DATE: 01/02/17 Upon admission, he was taken to the operating room where he underwent the above-mentioned procedure. He tolerated this well, and there were no complications. On postop day #1, his leg pain had decreased. He had a normal respiratory effort. Over the next couple of days, he continued to do well. Discharge planning was performed. On 12/26/2016, he had no focal deficits. He continued to progress. Discharge instructions were given. Due to his improved and stable condition, he was discharged home with the above-stated instructions. Information collected by: Marybel Jain I submit the above information as my discharge summary. YAAKOV/TAN Edilson Noyola II, M.D. / [id number] CC: Reza Link II, M.D.
[~2016-12-23 05:39] MED LIST changes: +ANASPAZ0.125 MG SL; +PCET PO; +ZOFRAN4 PO
[2016-12-26] MEDS ORDERED: OXYCOD PO (09:50)
[2017-02-14] MEDS ORDERED: STOOL SOFTENER PO (23:45)
[2017-02-14] MEDS ORDERED: NEUR300 PO (23:46)
[2017-02-14] MEDS ORDERED: BENTYL10 PO (23:46)
[2017-02-14] MEDS ORDERED: ZYRTEC ALLGY10 MG PO (23:46)
[2017-02-14] MEDS ORDERED: ELIQUIS 5 MG TAB5 MG PO (23:46)
[2017-02-14] MEDS ORDERED: ZOFRAN4 PO (23:47)
[2017-02-14] MEDS ORDERED: LOP25 PO (23:47)
[2017-02-14] MEDS ORDERED: MYCOSCROI TOP (23:47)
[2017-02-14] MEDS ORDERED: LEVOTHYROXIN50 MCG PO (23:47)
[2017-02-14] MEDS ORDERED: BLINK TEARS OPH (23:48)
[2017-02-14] MEDS ORDERED: VOLTAREN1 % TOP (23:48)
[2017-02-14] MEDS ORDERED: PRILOSEC40 MG PO (23:50)
[2017-02-14] MEDS ORDERED: BCG (23:50)
[2017-02-14] MEDS ORDERED: DITRO5 PO (23:50)
[2017-02-14] MEDS ORDERED: PYR200 PO (23:51)
[2017-02-14] MEDS ORDERED: MIRALAX POWDER1 PKT PO (23:51)
[2017-02-14] MEDS ORDERED: ULTRAM50 PO (23:52)
[2017-02-14] MEDS ORDERED: FLOMAX4 PO (23:52)
[2017-02-14] MEDS ORDERED: CARASPUDL PO (23:52)
[2017-02-14] MEDS ORDERED: OTC NASAL SPRAY NAS (23:54)
[2017-02-19] MEDS ORDERED: DURICEF PO (14:37)
[2017-02-19] MEDS ORDERED: PROSCAR5 PO (14:40)
[2017-04-24] MEDS ORDERED: CARASPUDL PO (20:43)
[2017-04-24] MEDS ORDERED: LOP25 PO (20:44)
[2017-04-24] MEDS ORDERED: ACET500CAP PO (20:44)
[2017-04-24] MEDS ORDERED: SYN.05 PO (20:44)
[2017-04-24] MEDS ORDERED: FLOMAX4 PO (20:44)
[2017-04-24] MEDS ORDERED: MYCOSCROI TOP (20:45)
[2017-04-24] MEDS ORDERED: VOLTAREN1 % TOP (20:46)
[2017-04-24] MEDS ORDERED: PRILOSEC40 MG PO (20:46)
[2017-04-24] MEDS ORDERED: ZYRTEC ALLGY10 MG PO (20:47)
[2017-04-24] MEDS ORDERED: LEVSINTAB PO (20:47)
[2017-04-24] MEDS ORDERED: PYR200 PO (20:48)
[2017-04-24] MEDS ORDERED: DITRO5 PO (20:49)
[2017-04-24] MEDS ORDERED: ACULARLS OPH (20:49)
[2017-04-24] MEDS ORDERED: ZOFRAN4 PO (20:49)
[2017-04-24] MEDS ORDERED: BENTYL10 PO (20:49)
[2017-04-24] MEDS ORDERED: ELIQUIS 5 MG TAB5 MG PO (20:50)
[2017-04-24] MEDS ORDERED: NEUR300 PO (20:51)
[2017-04-24] MEDS ORDERED: ULTRAM50 PO (20:52)
[2017-04-24] MEDS ORDERED: PROSCAR5 PO (20:53)
[2017-05-03] MEDS ORDERED: CORDARONE PO (10:23)
[2017-05-03] MEDS ORDERED: CEFT5 PO (10:25)
[2017-05-03] MEDS ORDERED: CIPOTIC OT (10:26)
[2017-05-03] MEDS ORDERED: LOP50 PO (10:29)
[2017-05-03] MEDS ORDERED: PYR200 PO (10:32)
== END 2016-12-26 12:56 | disposition home or self-care (01) ==
LOC: SDC 05:39 → SDC/OF 11:06 → 3SO 12:39
PROVIDERS: Orthopaedic Surgery
PROC: 01NB0ZZ Release Lumbar Nerve, Open Approach (ICD-10-PCS; principal; 2016-12-23 08:15)
DX: M48.06 Spinal stenosis, lumbar region (principal); M54.16 Radiculopathy, lumbar region; I48.92 Unspecified atrial flutter; I13.0 Hypertensive heart and chronic kidney disease with heart failure and stage 1 through stage 4 chronic kidney disease, or unspecified chronic kidney disease; N18.2 Chronic kidney disease, stage 2 (mild); I50.9 Heart failure, unspecified; E78.5 Hyperlipidemia, unspecified; E78.00 Pure hypercholesterolemia, unspecified; E03.9 Hypothyroidism, unspecified; H54.42 Blindness, left eye, normal vision right eye; M19.90 Unspecified osteoarthritis, unspecified site; Z86.73 Personal history of transient ischemic attack (TIA), and cerebral infarction without residual deficits; Z88.5 Allergy status to narcotic agent; Z88.6 Allergy status to analgesic agent; Z79.891 Long term (current) use of opiate analgesic; Z79.01 Long term (current) use of anticoagulants; Z79.899 Other long term (current) drug therapy; Z87.891 Personal history of nicotine dependence; Z96.1 Presence of intraocular lens; Z87.01 Personal history of pneumonia (recurrent); Z85.46 Personal history of malignant neoplasm of prostate; Z92.21 Personal history of antineoplastic chemotherapy; Z90.49 Acquired absence of other specified parts of digestive tract; Z96.641 Presence of right artificial hip joint; Z98.41 Cataract extraction status, right eye; Z98.42 Cataract extraction status, left eye
CPT/HCPCS: 80048; 82962; 85014; 85018; 88304; 88311; 93005; 96374; 96376; 97110-GP; 97116-GP; 97161-GP; 97530-GP; A9270-GY; G0378; G8978-CK-GP; G8979-CH-GP; J0690; J1030; J2250; J2710; J3010

== ENCOUNTER 2017-01-11 14:11 | Inpatient (IN) | payer MEDICARE, OTHER ==
--- NOTE | ~2017-01-11 | CN ---
Consultation Report [facility] [address] [place]. [address] NAME: MARGUERITE ALEX : 30 STATUS : ADM IN [facility]#: [id number] AGE: 86 ADM/REG DATE : 01/11/17 MR#: [id number] REPORT SERV DATE: 01/12/17 DICTATED BY: FARRUKH JOSEPH DATE: 01/11/17 REPORT STATUS : Draft TRANSCRIBED BY: MODL DATE: 01/11/17 CARDIOLOGY CONSULTATION DATE OF CONSULTATION: [facility] PHYSICIAN: Dr. Duvall. INDICATION: An 86-year-old man with atrial fibrillation with rapid ventricular response. HISTORY OF PRESENT ILLNESS: Mr. Alex is an 86-year-old man with a history of prostate cancer, recurrent bladder infections, and atrial fibrillation. He presented to the emergency room with an elevated heart rate and generalized weakness. He was initially evaluated and eventually found to have bladder infection with hypotension. He was admitted to the MICU, has been treated with antibiotics and gentle fluid resuscitation, is now on pressors and his heart rate is 86. He denies chest pain or tightness. No palpitations or syncope. He had generalized weakness, which brought him in. He reports compliance with his medications. REVIEW OF SYSTEMS: The review of systems is as per the history of present illness. He did have some mild nausea. No vomiting. No angina. Chronic mild dyspnea. FAMILY HISTORY: Positive for coronary artery disease. SOCIAL HISTORY: The patient is . Lives with his . No tobacco or alcohol. ALLERGIES: ASPIRIN AND CODEINE. HOME MEDICATIONS: Eliquis 5 b.i.d., Zyrtec, Bentyl, Neurontin, [place], Levsin, Synthroid, Lopressor 25 mg p.o. b.i.d., Prilosec, Zofran, Ditropan, phenazopyridine, MiraLax, Flomax. PHYSICAL EXAMINATION: VITAL SIGNS: Heart rate 86, blood pressure 140/80. GENERAL: The patient is a pleasant, elderly white male, in no apparent distress. HEENT: Conjunctivae are anicteric, no xanthelasma, lips without cyanosis. NECK: Supple, normal JVP, carotids +2 without bruit. LUNGS: Decreased breath sounds bilaterally. CARDIOVASCULAR: Irregular. Normal S1, S2. Some distant heart sounds. ABDOMEN: Soft, nontender, nondistended, with normal bowel sounds. No hepatomegaly. EXTREMITIES: Mild edema. NEURO/PSYCH: Blind in left eye. DATA: Electrocardiogram shows atrial fibrillation initially with rapid ventricular response, poor R-wave progression, nonspecific ST-segment changes. Labs are reviewed. BNP level is Consultation Report [address] [address] NAME: MARGUERITE ALEX : 30 STATUS : ADM IN PAT#: [id number] AGE: 86 ADM/REG DATE : 01/11/17 MR#: [id number] REPORT SERV DATE: 01/12/17 DICTATED BY: FARRUKH JOSEPH DATE: 01/11/17 REPORT STATUS : Draft TRANSCRIBED BY: MODL DATE: 01/11/17 169, procalcitonin 1.2. IMPRESSION: 1. Urosepsis. 2. Atrial fibrillation with rapid ventricular response, recurrent. I believe secondary to his urosepsis. 3. Prostate cancer. 4. Hypertension. 5. Osteoarthritis. 6. Peripheral vascular disease. RECOMMENDATIONS: Mr. Alex's heart rates improved with fluid resuscitation and treatment of his urosepsis. His heart rate is in the 80s now while he is really on his Levophed. I think supportive care is reasonable. At this time, I will notify Dr. Duvall of his admission. WO/MODL Farrukh Joseph M.D., Ph.D, F.A.C.C. / [id number] CC: Nilda Ritter MD
--- NOTE | ~2017-01-11 | HP ---
History And Physical [id number] [place]. [address] NAME: MARGUERITE ALEX : 30 STATUS : ADM IN [facility]#: [id number] AGE: 86 ADM/REG DATE : 01/11/17 MR#: [id number] REPORT SERV DATE: 01/11/17 DICTATED BY: DENICE RITTER DATE: 01/11/17 REPORT STATUS : Draft TRANSCRIBED BY: MODL DATE: 01/11/17 DATE OF ADMISSION: 01/11/2017 REASON FOR ADMISSION: Atrial fibrillation with RVR and septic shock from a presumed urinary source. HISTORY OF PRESENT ILLNESS: Mr. Alex is a debilitated 86-year-old gentleman who has been admitted to the [facility] medicine service multiple times recently as well as to [place]. He is followed by [facility] Cardiology as well for atrial fibrillation with multiple previous episodes of RVR. He also recently had a back surgery with Dr. Noyola last week. He was brought to the ER today for somnolence, hypotension, and atrial fibrillation with RVR. He was seen by Dr. Reyna in the emergency department and started on amiodarone and Cardizem and was given 1 L fluid bolus which did improve his blood pressure from around 79 systolic to the mid 90s; however, he is now becoming more hypotensive, and it is noted that he had a pansensitive E coli UTI on 01/06/2017, for which he is not currently receiving antibiotics. He does have a history of recurrent urinary tract infections. We are now moving him to the intensive care unit for treatment of septic shock from presumed urinary source and ongoing monitoring and management of his atrial fibrillation with RVR. PAST MEDICAL HISTORY: He has an extensive past medical history including recurrent UTI; history of both bladder and prostate cancer, status post brachytherapy of the prostate with recurrent cystoscopy with tumor removal by Dr. Unger, and a history of urinary retention; hypothyroidism, on home Synthroid; paroxysmal atrial fibrillation, on metoprolol; hypertension; osteoarthritis; peripheral arterial disease, status post endovascular stenting; left eye blindness; GERD; history of left eye surgery; inguinal hernia repair; left rotator cuff repair; back surgery remotely as well as last week by Dr. Noyola. He has a history of prior Clarence fundoplication. TURP, cataract surgery, gastric ulcer surgery, thoracic aortic aneurysm with repair, right total hip arthroplasty, and cardiac ablation. SOCIAL HISTORY: Patient lives with his in [facility]. He denies tobacco, alcohol, or illicit drug use. FAMILY HISTORY: Coronary artery disease and hypertension in multiple first-degree relatives. ALLERGIES: ASPIRIN AND CODEINE. HOME MEDICATIONS: He has a home medication list including apixaban 5 mg twice a day, Bentyl 10 mg three times a day as needed for abdominal cramping, Zofran 4 mg for nausea as needed, Neurontin 300 mg three times a day, Prilosec 40 mg p.o. at bedtime, metoprolol 25 p.o. twice a day, Synthroid 50 mcg at bedtime, Flomax 0.4 mg at bedtime, Azo-Standard tab 95 mg p.o. twice a day, Ditropan 5 mg three times a day, Zyrtec 10 daily as needed for seasonal allergies, Levsin 0.125 mg p.r.n. up to three times a day for abdominal cramping, over-the- counter stool softener and MiraLAX as needed for constipation, hydrocodone 7.5/325 once up to every 12 hours as needed for back pain. His primary care physician is Dr. Guanako Kimble in [facility]. History And Physical [address] [address] NAME: MARGUERITE ALEX : 30 STATUS : ADM IN [facility]#: [id number] AGE: 86 ADM/REG DATE : 01/11/17 MR#: [id number] REPORT SERV DATE: 01/11/17 DICTATED BY: DENICE RITTER DATE: 01/11/17 REPORT STATUS : Draft TRANSCRIBED BY: TAN DATE: 01/11/17 ADVANCE DIRECTIVES/LIVING OCASIO: None. His primary decisionmaker is his , Margarita Alex, phone number [phone]. He is a full code according to records and he confirms this today. REVIEW OF SYSTEMS: A comprehensive 13-point review of systems was completed and is negative except for back pain and those points described above in the history of present illness section of the dictation. PHYSICAL EXAMINATION: GENERAL: The patient is an elderly male who appears chronically ill. HEENT: He has a left eye scar with associated blindness. Head is otherwise atraumatic and normocephalic. Right eye, pupil is equal, round, and reactive to light. Extraocular movements are intact. Ears, nose, and mouth are unremarkable. He has dry oral mucosa and poor oral dentition. NECK: Supple with some redundant soft tissue and no evidence of JVD. LUNGS: With coarse breath sounds in bilateral lower lobes and few expiratory crackles. HEART: S1 and S2, irregularly irregular with rate in the one-teens. ABDOMEN: Obese, soft with mild tympany to percussion and positive bowel sounds in all four quadrants. He is wearing a diaper. EXTREMITIES: With 1+ pitting edema bilaterally and some chronic skin changes associated with long-term sun exposure. NEUROLOGIC: He is sluggishly reactive/lethargic. He moves all four. He has impairment of his left visual field which is chronic and he is too lethargic to perform a psychiatric exam. DIAGNOSTIC STUDIES: Personal review of diagnostic workup completed in the emergency department today: Chest pain profile shows a white blood cell count of 9.0 with mild normochromic, normocytic anemia with a hemoglobin of 12.4, hematocrit of 36.3. His coags are mildly elevated with an INR of 1.3 and a ProTime of 15.9 in conjunction with his home apixaban use. Metabolic profile is fairly benign. He has normal serum electrolytes, normal bicarb, evidence of chronic kidney disease which is actually improved compared to his discharge labs on 12/16/2016, and normal glucose level. He has a magnesium level that is slightly depressed at 1.6 and a negative troponin. His chest x-ray shows mild diffuse bilateral increased interstitial markings consistent with mild volume overload by my read. Of note, a urine culture performed on 01/06/[address] Joe Moyer shows an E coli UTI with greater than 100,000 colony-forming units per mL of urine, this is a pansensitive organism, which is Ancef sensitive. His last echocardiogram was performed on 04/08/2015 and is unavailable in [facility]. IMPRESSION: 1. Septic shock. 2. Escherichia coli urinary tract infection which is pansensitive. 3. Atrial fibrillation with rapid ventricular response with improved rate control, status post initiation of amiodarone and Cardizem. 4. Status post recent back surgery with sedentary/immobilized state. History And Physical [address] [address] NAME: MARGUERITE ALEX : 30 STATUS : ADM IN PAT#: [id number] AGE: 86 ADM/REG DATE : 01/11/17 MR#: [id number] REPORT SERV DATE: 01/11/17 DICTATED BY: DENICE RITTER DATE: 01/11/17 REPORT STATUS : Draft TRANSCRIBED BY: TAN DATE: 01/11/17 5. Chronic kidney disease. 6. Hypomagnesemia which may be contributing to atrial fibrillation. 7. Normochromic, normocytic anemia of chronic disease. 8. Coagulopathy secondary to anticoagulant use. 9. Past medical history including multilevel lumbar laminectomy, hypertension, congestive heart failure, Gastroesophageal reflux disease, gout, coronary artery disease, status post myocardial infarction, remote prostate and bladder cancer and skin cancer, rheumatoid arthritis, hypothyroidism, and atrial fibrillation which is variably rate controlled. 10.General debility. 11.Protein calorie malnutrition of unclear severity. PLAN: We will admit Mr. Alex to the intensive care unit, place a PICC line for central venous access, and proceed with titration of Levophed on an as-needed basis as he undergoes ongoing volume resuscitation with fluids. He will be started on Ancef in light of his recent pansensitive E coli UTI which does not appear to be treated as far as we can see on the records available and continue with amiodarone. We will hold the Cardizem as he is now rate controlled and hypotensive and replace magnesium as this may be contributing to his rapid ventricular response as well as his sepsis and hypovolemia. We will notify his small products ii assembler at [facility] of his hospitalization and ask for assistance with management of his atrial fibrillation and also courtesy notify Dr. Unger. We will monitor him closely in the ICU and also may consider involving Palliative Care during this hospitalization as he does have frequent hospital admissions and seems to be on a downward trajectory with regard to his overall functional status. He is a full code at this point. We will make further adjustments to his regimen as clinically warranted and follow up in the morning. ROB/TAN Denice Ritter MD / [id number] CC: Guanako Kimble M.D.
--- NOTE | ~2017-01-11 | DS ---
Discharge Summary [id number] [place]. [address] NAME: MARGUERITE ALEX : 30 STATUS : ADM IN [facility]#: [id number] AGE: 86 ADM/REG DATE : 01/11/17 MR#: [id number] REPORT SERV DATE: 01/16/17 DICTATED BY: BERNICE WALDEN DATE: 01/16/17 REPORT STATUS : Draft TRANSCRIBED BY: MODL DATE: 01/16/17 ADMISSION DATE: 01/11/2017 DISCHARGE DATE: 01/16/2017 FINAL HOSPITAL DIAGNOSES: 1. Urinary tract infection. 2. Atrial fibrillation with rapid ventricular response. 3. Hypotension felt secondary to urinary tract infection. 4. History of bladder and prostate cancer. 5. History of peripheral vascular disease. 6. History of recent back surgery. CONSULTATIONS: 1. Farrukh Jean Baptiste M.D., Ph.D, F.A.C.C., [facility]. 2. Pulmonary and Critical Care. PROCEDURES: CT abdomen and pelvis done on 01/10/2017 showing fluid and gas-containing dilated proximal and mid small bowel with nondilated distal ileum, likely low-grade partial SBO, diverticulosis without diverticulitis, atherosclerosis, post cholecystectomy, post right hip prosthesis, and metallic seed implants. CT of the brain done on the same date showing no acute intracranial abnormality and atrophy. CURRENT PHYSICAL FINDINGS AND HISTORY OF PRESENT ILLNESS: Please see initially dictated H and P by Dr. Ritter. In brief, the patient is an 86-year-old male with above medical history who presented with hypotension felt to be secondary to UTI and sepsis. He was also noted to be in atrial fibrillation. Vital signs at the time of admission: BP was 105/69, subsequent blood pressures got as low as 80s over 70s, subsequent blood pressures have been in the 160s to 170s. T-max was 100.9 on 01/11/2017, otherwise he has remained afebrile. Initial lab work showed a procalcitonin of 1.21, initial CPK 987, initial lactate of 1.1. He had a cortisol p.m. at 15.2. Initial white count of 9000. Strep urinary antigen was negative. Legionella was negative. Urinalysis was positive. Subsequent blood cultures are negative at four days. Urinary culture showed E coli sensitive to Ancef and ampicillin. HOSPITAL COURSE: The patient was initially admitted to the ICU in atrial fibrillation with RVR, UTI, and hypotension felt either secondary to AFib with RVR or the UTI. He was initially under the care of the Pulmonary and Critical Care Team. Palliative Care and EP were consulted. He was given IV fluids, started on Ancef antibiotics and hydrocortisone 100 q.8. He was relatively stable in the ICU, was seen by Cardiology and when his rate was improved, he was discharged to the floor. PT was consulted and his steroids were titrated down. A swallowing study was also done, which he did pass. He also received treatment for constipation. Cardiology recommended resuming his p.o. metoprolol, which was done. He was off the Cardizem drip. He was already anticoagulated. They signed off. Over the next 48 hours, his Solu-Cortef was titrated off. As noted above, his p.m. cortisol was normal. He was not felt to be steroid dependent. His acute illness may have been the culprit. He was assessed by PT and ambulated, did not have recommendations from PT for inpatient placement or outpatient physical therapy. He was reassessed on 01/16/2017. He had received almost Discharge Summary [address] [address] NAME: MARGUERITE ALEX : 30 STATUS : ADM IN [facility]#: [id number] AGE: 86 ADM/REG DATE : 01/11/17 MR#: [id number] REPORT SERV DATE: 01/16/17 DICTATED BY: BERNICE WALEDN DATE: 01/16/17 REPORT STATUS : Draft TRANSCRIBED BY: TAN DATE: 01/16/17 five days of IV antibiotics. He was afebrile. His blood pressures were stable off the steroids. He was ambulatory. He had no further RVR and he was felt stable for discharge. DISPOSITION: Discharged home with Rx written for ampicillin 500 q.6 for another three days to complete a week's course of treatment. He will continue his Eliquis 5 b.i.d., Neurontin 300 t.i.d., Synthroid 50, Lopressor 25 b.i.d., Prilosec 40, Flomax 0.4, Bentyl 10 t.i.d., Zofran 4, AZO-Standard, Ditropan 5 t.i.d., Zyrtec 10, Levsin 0.125, stool softener MiraLAX, and hydrocodone 7.5/325 one tablet b.i.d. I did observe the patient standing bearing weight. He seemed stable to me. I did examine his postsurgical wounds and they were clean and dry without erythema or discharge. He was discharged home with post hospital PCP followup scheduled. DICTATED BY: Reza Marquez/TAN Bernice Walden M.D. / [id number] CC: Reza Marquez M.D.
[2017-01-11 13:57] LABS: BASOPHILS 0.1 %; BASOPHILS ABSOLUTE 0.01 10/3/uL (0.0-0.16); EOSINOPHILS 0.2 %; EOSINOPHILS ABSOLUTE 0.02 10/3/uL (0.0-0.53); HEMATOCRIT 36.3 % (40.0-51.0); HEMOGLOBIN 12.4 g/dL (13.6-17.8); IMMATURE GRANULOCYTES 0.2 %; IMMATURE GRANULOCYTES ABSOLUTE 0.02 10/3/uL (0.0-0.11); LYMPHOCYTES 6.6 %; MEAN CORPUS HGB CONC 34.2 g/dL (32.0-36.0); MEAN PLATELET VOLUME 9.4 fL (9.2-13.0); MONOCYTES 8.6 %; MONOCYTES ABSOLUTE 0.78 10/3/uL (0.21-1.20); NEUTROPHILS 84.3 %; NEUTROPHILS ABSOLUTE 7.61 10/3/uL (2.02-8.40); PLATELET COUNT 158 10/3/uL (150-400); RED CELL COUNT 3.87 10/6/uL (4.7-6.1)
[2017-01-11 13:58] LABS: ER CBC TAT 0 Hrs 08 Mins; MANUAL DIFF NO %; MEAN CORPUSCULAR VOLUME 93.8 fL (80-100)
[2017-01-11 14:05] LABS: INTERNATIONAL NORMAL RATI 1.3 UNITS (-); PARTIAL THROMBO TIME 36.3 SEC (22.5-37.2); PROTIME (NOT ORD) 15.9 SEC (12.0-14.5)
[~2017-01-11 14:11] MED LIST changes: +OXYCOD PO
[2017-01-11 14:18] LABS: BUN (BLOOD UREA NITROGEN) 24 MG/DL (6-23); CALCIUM, SERUM 8.8 MG/DL (8.5-10.4); CHEST PAIN PROFILE TAT 0 Hrs 28 Mins; CHLORIDE, SERUM 105 MMOL/L (96-112); CO2 (CARBON DIOXIDE) 26 MMOL/L (24-34); GFR AFRICAN AMERICAN 45 ML/MIN (>=60); GFR NON AFRICAN AMERICAN 38 ML/MIN (>=60); GLUCOSE, SERUM 103 MG/DL (60-99); POTASSIUM, SERUM 3.9 MMOL/L (3.5-5.3); SODIUM, SERUM 139 MMOL/L (135-148); TROPONIN I 0.04 NG/ML (<0.05)
[2017-01-11] MEDS ORDERED: ELIQUIS 5 MG TAB5 MG PO (14:56)
[2017-01-11] MEDS ORDERED: BENTYL10 PO (14:57)
[2017-01-11] MEDS ORDERED: ZOFRAN4 PO (14:57)
[2017-01-11] MEDS ORDERED: NEUR300 PO (14:58)
[2017-01-11] MEDS ORDERED: PRILOSEC40 MG PO (14:59)
[2017-01-11] MEDS ORDERED: SYN.05 PO (15:00)
[2017-01-11] MEDS ORDERED: FLOMAX4 PO (15:00)
[2017-01-11] MEDS ORDERED: LOP25 PO (15:00)
[2017-01-11] MEDS ORDERED: AZO-STANDARD95 MG PO (15:02)
[2017-01-11] MEDS ORDERED: DITRO5 PO (15:02)
[2017-01-11] MEDS ORDERED: LEVSINTAB PO (15:03)
[2017-01-11] MEDS ORDERED: ZYRTEC ALLGY10 MG PO (15:03)
[2017-01-11] MEDS ORDERED: MIRALAX POWDER1 PKT PO (15:05)
[2017-01-11] MEDS ORDERED: STOOL SOFTENER OTC PO (15:05)
[2017-01-11] MEDS ORDERED: NORCO1 TA2 PO (15:06)
[2017-01-11 16:08] LABS: LACTATE 1.1 MMOL/L (0.3-2.4)
[2017-01-11 16:14] LABS: ULTRASENSITIVE TSH 0.854 MCIU/ML (0.358-3.740)
[2017-01-11 16:31] LABS: PROCALCITONIN 1.21 ng/mL (<0.5)
[2017-01-11 19:04] LABS: A/G RATIO 0.9 (0.7-1.9); ALKALINE PHOSPHATASE 58 U/L (45-117); BUN (BLOOD UREA NITROGEN) 25 MG/DL (6-23); CALCIUM, SERUM 8.5 MG/DL (8.5-10.4); CHLORIDE, SERUM 108 MMOL/L (96-112); CO2 (CARBON DIOXIDE) 22 MMOL/L (24-34); CREATININE 1.71 MG/DL (0.70-1.30); FREE T4 1.18 NG/DL (0.76-1.46); GFR AFRICAN AMERICAN 41 ML/MIN (>=60); GFR NON AFRICAN AMERICAN 35 ML/MIN (>=60); GLOBULIN 3.5 G/DL (2.5-4.1); GLUCOSE, SERUM 102 MG/DL (60-99); PHOSPHORUS, SERUM 2.4 MG/DL (2.5-4.5); POTASSIUM, SERUM 3.8 MMOL/L (3.5-5.3); PREALBUMIN 21.3 MG/DL (17.0-43.0); SGOT(AST) 16 U/L (5-40); SGPT(ALT) 16 U/L (5-65); SODIUM, SERUM 138 MMOL/L (135-148); TOTAL BILIRUBIN 0.8 MG/DL (0-1.2); TOTAL PROTEIN 6.5 G/DL (6.0-8.5)
[2017-01-11 20:30] LABS: ASCORBIC ACID (UR NOT ORDER) NEG (NEG); BILIRUBIN, URINE NEGATIVE (NEG); KETONE, URINE TRACE MG/DL (NEG); LEUKOCYTE ESTERASE(NOT OR LARGE (NEG)
[2017-01-11 20:35] LABS: WBC (NOT ORDERED) (RFLEX) > 182 (0-5)
[2017-01-11 23:17] LABS: CK-MB 23.9 NG/ML
[2017-01-11 23:18] LABS: CKMB INDEX (NOT ORD) 2.4
[2017-01-12 04:57] LABS: BASOPHILS 0.1 %; BASOPHILS ABSOLUTE 0.01 10/3/uL (0.0-0.16); EOSINOPHILS 0.1 %; EOSINOPHILS ABSOLUTE 0.01 10/3/uL (0.0-0.53); HEMATOCRIT 35.3 % (40.0-51.0); HEMOGLOBIN 11.8 g/dL (13.6-17.8); IMMATURE GRANULOCYTES 0.1 %; IMMATURE GRANULOCYTES ABSOLUTE 0.01 10/3/uL (0.0-0.11); LYMPHOCYTES 9.4 %; LYMPHOCYTES ABSOLUTE 0.81 10/3/uL (0.67-4.30); MEAN CORPUS HGB CONC 33.4 g/dL (32.0-36.0); MEAN CORPUSCULAR HEMOGLOB 31.8 pg (26.0-34.0); MEAN CORPUSCULAR VOLUME 95.1 fL (80-100); MEAN PLATELET VOLUME 9.7 fL (9.2-13.0); MONOCYTES 5.8 %; NEUTROPHILS 84.5 %; NEUTROPHILS ABSOLUTE 7.27 10/3/uL (2.02-8.40); PLATELET COUNT 167 10/3/uL (150-400); RBC DISTRIBUTION WIDTH 13.1 % (12.0-16.0); RED CELL COUNT 3.71 10/6/uL (4.7-6.1); WHITE BLOOD CELLS 8.6 10/3/uL (4.5-10.5)
[2017-01-12 05:03] LABS: MANUAL DIFF NO %
[2017-01-12 05:10] LABS: CALCIUM, SERUM 9.3 MG/DL (8.5-10.4); CHLORIDE, SERUM 105 MMOL/L (96-112); CO2 (CARBON DIOXIDE) 22 MMOL/L (24-34); CREATININE 1.57 MG/DL (0.70-1.30); GFR AFRICAN AMERICAN 46 ML/MIN (>=60); GFR NON AFRICAN AMERICAN 39 ML/MIN (>=60); POTASSIUM, SERUM 3.9 MMOL/L (3.5-5.3); SODIUM, SERUM 136 MMOL/L (135-148)
[2017-01-12 05:11] LABS: BUN (BLOOD UREA NITROGEN) 29 MG/DL (6-23); GLUCOSE, SERUM 131 MG/DL (60-99); PHOSPHORUS, SERUM 3.4 MG/DL (2.5-4.5)
[2017-01-14 06:55] LABS: BUN (BLOOD UREA NITROGEN) 33 MG/DL (6-23); CALCIUM, SERUM 9.4 MG/DL (8.5-10.4); CHLORIDE, SERUM 109 MMOL/L (96-112); CO2 (CARBON DIOXIDE) 22 MMOL/L (24-34); CREATININE 1.21 MG/DL (0.70-1.30); GFR AFRICAN AMERICAN 62 ML/MIN (>=60); GFR NON AFRICAN AMERICAN 54 ML/MIN (>=60); GLUCOSE, SERUM 122 MG/DL (60-99); POTASSIUM, SERUM 3.8 MMOL/L (3.5-5.3); SODIUM, SERUM 141 MMOL/L (135-148)
[2017-01-16] MEDS ORDERED: AMPI500 PO (14:06)
[2017-01-16] MEDS ORDERED: TESSALON200 MG PO (14:09)
[2017-02-14] MEDS ORDERED: STOOL SOFTENER PO (23:45)
[2017-02-14] MEDS ORDERED: ZYRTEC ALLGY10 MG PO (23:46)
[2017-02-14] MEDS ORDERED: ELIQUIS 5 MG TAB5 MG PO (23:46)
[2017-02-14] MEDS ORDERED: BENTYL10 PO (23:46)
[2017-02-14] MEDS ORDERED: NEUR300 PO (23:46)
[2017-02-14] MEDS ORDERED: ZOFRAN4 PO (23:47)
[2017-02-14] MEDS ORDERED: LEVOTHYROXIN50 MCG PO (23:47)
[2017-02-14] MEDS ORDERED: MYCOSCROI TOP (23:47)
[2017-02-14] MEDS ORDERED: LOP25 PO (23:47)
[2017-02-14] MEDS ORDERED: BLINK TEARS OPH (23:48)
[2017-02-14] MEDS ORDERED: VOLTAREN1 % TOP (23:48)
[2017-02-14] MEDS ORDERED: DITRO5 PO (23:50)
[2017-02-14] MEDS ORDERED: BCG (23:50)
[2017-02-14] MEDS ORDERED: PRILOSEC40 MG PO (23:50)
[2017-02-14] MEDS ORDERED: PYR200 PO (23:51)
[2017-02-14] MEDS ORDERED: MIRALAX POWDER1 PKT PO (23:51)
[2017-02-14] MEDS ORDERED: ULTRAM50 PO (23:52)
[2017-02-14] MEDS ORDERED: FLOMAX4 PO (23:52)
[2017-02-14] MEDS ORDERED: CARASPUDL PO (23:52)
[2017-02-14] MEDS ORDERED: OTC NASAL SPRAY NAS (23:54)
[2017-02-19] MEDS ORDERED: DURICEF PO (14:37)
[2017-02-19] MEDS ORDERED: PROSCAR5 PO (14:40)
[2017-04-24] MEDS ORDERED: CARASPUDL PO (20:43)
[2017-04-24] MEDS ORDERED: SYN.05 PO (20:44)
[2017-04-24] MEDS ORDERED: LOP25 PO (20:44)
[2017-04-24] MEDS ORDERED: ACET500CAP PO (20:44)
[2017-04-24] MEDS ORDERED: FLOMAX4 PO (20:44)
[2017-04-24] MEDS ORDERED: MYCOSCROI TOP (20:45)
[2017-04-24] MEDS ORDERED: VOLTAREN1 % TOP (20:46)
[2017-04-24] MEDS ORDERED: PRILOSEC40 MG PO (20:46)
[2017-04-24] MEDS ORDERED: ZYRTEC ALLGY10 MG PO (20:47)
[2017-04-24] MEDS ORDERED: LEVSINTAB PO (20:47)
[2017-04-24] MEDS ORDERED: PYR200 PO (20:48)
[2017-04-24] MEDS ORDERED: DITRO5 PO (20:49)
[2017-04-24] MEDS ORDERED: ACULARLS OPH (20:49)
[2017-04-24] MEDS ORDERED: BENTYL10 PO (20:49)
[2017-04-24] MEDS ORDERED: ZOFRAN4 PO (20:49)
[2017-04-24] MEDS ORDERED: ELIQUIS 5 MG TAB5 MG PO (20:50)
[2017-04-24] MEDS ORDERED: NEUR300 PO (20:51)
[2017-04-24] MEDS ORDERED: ULTRAM50 PO (20:52)
[2017-04-24] MEDS ORDERED: PROSCAR5 PO (20:53)
[2017-05-03] MEDS ORDERED: CORDARONE PO (10:23)
[2017-05-03] MEDS ORDERED: CEFT5 PO (10:25)
[2017-05-03] MEDS ORDERED: CIPOTIC OT (10:26)
[2017-05-03] MEDS ORDERED: LOP50 PO (10:29)
[2017-05-03] MEDS ORDERED: PYR200 PO (10:32)
== END 2017-01-16 15:59 | disposition home or self-care (01) | DRG 871 ==
LOC: ER 14:11 → CCU 16:33 → MIC 17:06 → 2SO 01-12 20:09
PROVIDERS: Hospitalist; Internal Medicine Cardiovascular Disease; Internal Medicine Critical Care Medicine
PROC: 05HM33Z Insertion of Infusion Device into Right Internal Jugular Vein, Percutaneous Approach (ICD-10-PCS; principal; 2017-01-11)
DX: A41.51 Sepsis due to Escherichia coli [E. coli] (principal); R65.21 Severe sepsis with septic shock; K56.60 Unspecified intestinal obstruction; E46 Unspecified protein-calorie malnutrition; N39.0 Urinary tract infection, site not specified; C61 Malignant neoplasm of prostate; E27.40 Unspecified adrenocortical insufficiency; I50.9 Heart failure, unspecified; I13.0 Hypertensive heart and chronic kidney disease with heart failure and stage 1 through stage 4 chronic kidney disease, or unspecified chronic kidney disease; B96.20 Unspecified Escherichia coli [E. coli] as the cause of diseases classified elsewhere; R62.7 Adult failure to thrive; I48.2 Chronic atrial fibrillation; E86.9 Volume depletion, unspecified; K57.30 Diverticulosis of large intestine without perforation or abscess without bleeding; E83.42 Hypomagnesemia; D64.9 Anemia, unspecified; Z51.5 Encounter for palliative care; N18.9 Chronic kidney disease, unspecified; M19.90 Unspecified osteoarthritis, unspecified site; I73.9 Peripheral vascular disease, unspecified; H54.42 Blindness, left eye, normal vision right eye; K21.9 Gastro-esophageal reflux disease without esophagitis; M06.9 Rheumatoid arthritis, unspecified; K40.90 Unilateral inguinal hernia, without obstruction or gangrene, not specified as recurrent; I25.10 Atherosclerotic heart disease of native coronary artery without angina pectoris; Z88.6 Allergy status to analgesic agent; Z88.5 Allergy status to narcotic agent; Z82.49 Family history of ischemic heart disease and other diseases of the circulatory system; Z79.899 Other long term (current) drug therapy; Z98.890 Other specified postprocedural states; Z85.828 Personal history of other malignant neoplasm of skin
CPT/HCPCS: 36569; 71010; 74220; 80048; 80053; 80069; 81001; 82533; 82550; 82553; 83605; 83735; 83880; 84100; 84134; 84145; 84439; 84443; 84484; 85025; 85610; 85730; 87040; 87077; 87086; 87186; 87449; 87641; 93005; 93306; 96361; 96374; 97161-GP; 99291; A9270-GY; C1751; C9113; G8978-CI-GP; G8979-CI-GP; G8980-CI-GP; J0360; J0690; J1720

== ENCOUNTER 2017-01-19 03:23 | Emergency (ER) | payer MEDICARE, OTHER ==
[2017-01-19 02:39] LABS: BASOPHILS 0.2 %; BASOPHILS ABSOLUTE 0.02 10/3/uL (0.0-0.16); EOSINOPHILS ABSOLUTE 0.26 10/3/uL (0.0-0.53); ER CBC TAT 0 Hrs 09 Mins; HEMATOCRIT 35.4 % (40.0-51.0); HEMOGLOBIN 11.9 g/dL (13.6-17.8); IMMATURE GRANULOCYTES 1.2 %; LYMPHOCYTES 6.3 %; LYMPHOCYTES ABSOLUTE 0.54 10/3/uL (0.67-4.30); MEAN CORPUS HGB CONC 33.6 g/dL (32.0-36.0); MEAN CORPUSCULAR HEMOGLOB 31.6 pg (26.0-34.0); MEAN CORPUSCULAR VOLUME 94.1 fL (80-100); MONOCYTES ABSOLUTE 0.52 10/3/uL (0.21-1.20); NEUTROPHILS 83.3 %; NEUTROPHILS ABSOLUTE 7.19 10/3/uL (2.02-8.40); RBC DISTRIBUTION WIDTH 13.1 % (12.0-16.0); RED CELL COUNT 3.76 10/6/uL (4.7-6.1); WHITE BLOOD CELLS 8.6 10/3/uL (4.5-10.5)
[2017-01-19 02:40] LABS: MANUAL DIFF NO %; PLATELET COUNT 224 10/3/uL (150-400)
[2017-01-19 02:49] LABS: ASCORBIC ACID (UR NOT ORDER) NEG (NEG); BILIRUBIN, URINE NEGATIVE (NEG); ER URINALYSIS TAT 0 Hrs 09 Mins; KETONE, URINE NEGATIVE (NEG); LEUKOCYTE ESTERASE(NOT OR TRACE (NEG); NITRITE (URINE) POS (NEG); WBC (NOT ORDERED) (RFLEX) 12 (0-5)
[2017-01-19 02:53] LABS: CHLORIDE, SERUM 108 MMOL/L (96-112); CREATININE 1.25 MG/DL (0.70-1.30); GFR AFRICAN AMERICAN 60 ML/MIN (>=60); GFR NON AFRICAN AMERICAN 52 ML/MIN (>=60); GLUCOSE, SERUM 114 MG/DL (60-99); POTASSIUM, SERUM 3.8 MMOL/L (3.5-5.3); SODIUM, SERUM 142 MMOL/L (135-148)
[2017-01-19 02:58] LABS: BUN (BLOOD UREA NITROGEN) 25 MG/DL (6-23); CO2 (CARBON DIOXIDE) 27 MMOL/L (24-34)
[2017-01-19 03:18] LABS: TROPONIN I 0.03 NG/ML (<0.05)
[~2017-01-19 03:23] MED LIST changes: +NORCO1 TA2 PO; +STOOL SOFTENER OTC PO; +SYN.05 PO; +TESSALON200 MG PO
[2017-02-14] MEDS ORDERED: STOOL SOFTENER PO (23:45)
[2017-02-14] MEDS ORDERED: ZYRTEC ALLGY10 MG PO (23:46)
[2017-02-14] MEDS ORDERED: NEUR300 PO (23:46)
[2017-02-14] MEDS ORDERED: BENTYL10 PO (23:46)
[2017-02-14] MEDS ORDERED: ELIQUIS 5 MG TAB5 MG PO (23:46)
[2017-02-14] MEDS ORDERED: MYCOSCROI TOP (23:47)
[2017-02-14] MEDS ORDERED: LOP25 PO (23:47)
[2017-02-14] MEDS ORDERED: ZOFRAN4 PO (23:47)
[2017-02-14] MEDS ORDERED: LEVOTHYROXIN50 MCG PO (23:47)
[2017-02-14] MEDS ORDERED: BLINK TEARS OPH (23:48)
[2017-02-14] MEDS ORDERED: VOLTAREN1 % TOP (23:48)
[2017-02-14] MEDS ORDERED: DITRO5 PO (23:50)
[2017-02-14] MEDS ORDERED: BCG (23:50)
[2017-02-14] MEDS ORDERED: PRILOSEC40 MG PO (23:50)
[2017-02-14] MEDS ORDERED: PYR200 PO (23:51)
[2017-02-14] MEDS ORDERED: MIRALAX POWDER1 PKT PO (23:51)
[2017-02-14] MEDS ORDERED: ULTRAM50 PO (23:52)
[2017-02-14] MEDS ORDERED: FLOMAX4 PO (23:52)
[2017-02-14] MEDS ORDERED: CARASPUDL PO (23:52)
[2017-02-14] MEDS ORDERED: OTC NASAL SPRAY NAS (23:54)
[2017-02-19] MEDS ORDERED: DURICEF PO (14:37)
[2017-02-19] MEDS ORDERED: PROSCAR5 PO (14:40)
[2017-04-24] MEDS ORDERED: CARASPUDL PO (20:43)
[2017-04-24] MEDS ORDERED: LOP25 PO (20:44)
[2017-04-24] MEDS ORDERED: FLOMAX4 PO (20:44)
[2017-04-24] MEDS ORDERED: ACET500CAP PO (20:44)
[2017-04-24] MEDS ORDERED: SYN.05 PO (20:44)
[2017-04-24] MEDS ORDERED: MYCOSCROI TOP (20:45)
[2017-04-24] MEDS ORDERED: VOLTAREN1 % TOP (20:46)
[2017-04-24] MEDS ORDERED: PRILOSEC40 MG PO (20:46)
[2017-04-24] MEDS ORDERED: LEVSINTAB PO (20:47)
[2017-04-24] MEDS ORDERED: ZYRTEC ALLGY10 MG PO (20:47)
[2017-04-24] MEDS ORDERED: PYR200 PO (20:48)
[2017-04-24] MEDS ORDERED: ZOFRAN4 PO (20:49)
[2017-04-24] MEDS ORDERED: DITRO5 PO (20:49)
[2017-04-24] MEDS ORDERED: BENTYL10 PO (20:49)
[2017-04-24] MEDS ORDERED: ACULARLS OPH (20:49)
[2017-04-24] MEDS ORDERED: ELIQUIS 5 MG TAB5 MG PO (20:50)
[2017-04-24] MEDS ORDERED: NEUR300 PO (20:51)
[2017-04-24] MEDS ORDERED: ULTRAM50 PO (20:52)
[2017-04-24] MEDS ORDERED: PROSCAR5 PO (20:53)
[2017-05-03] MEDS ORDERED: CORDARONE PO (10:23)
[2017-05-03] MEDS ORDERED: CEFT5 PO (10:25)
[2017-05-03] MEDS ORDERED: CIPOTIC OT (10:26)
[2017-05-03] MEDS ORDERED: LOP50 PO (10:29)
[2017-05-03] MEDS ORDERED: PYR200 PO (10:32)
== END 2017-01-19 04:59 | disposition home or self-care (01) ==
LOC: ER 03:23
PROVIDERS: Specialist
PROC: 0T9B70Z Drainage of Bladder with Drainage Device, Via Natural or Artificial Opening (ICD-10-PCS; principal; 2017-01-19)
DX: R33.9 Retention of urine, unspecified (principal); I25.2 Old myocardial infarction; I10 Essential (primary) hypertension; I48.91 Unspecified atrial fibrillation; Z85.51 Personal history of malignant neoplasm of bladder; Z88.5 Allergy status to narcotic agent; Z88.6 Allergy status to analgesic agent; Z79.2 Long term (current) use of antibiotics; Z79.891 Long term (current) use of opiate analgesic; Z79.899 Other long term (current) drug therapy
CPT/HCPCS: 71010; 80048; 81001; 83880; 84484; 85025; 99284